=== PATIENT | female | born 1975 | race American Indian/Alaskan Native ===

== ENCOUNTER 2018-02-19 20:33 | Emergency (ER) | payer SELFPAY ==
[2018-02-19] MEDS ORDERED: NACL 0.9% 500 ML 500 ML IV ONE (21:09)
[2018-02-19] MEDS ORDERED: TORADOL IV ONE (21:33)
[2018-02-19] MEDS ORDERED: NORMODYNE IV ONE (21:43)
[2018-02-19 21:45] LABS: Basophils # (Auto) 0.1 K/mm3 (0.0-0.1); Basophils % (Auto) 0.5 % (0.0-1.8); Eosinophils # (Auto) 0.1 K/mm3 (0.0-0.4); Eosinophils % (Auto) 1.3 % (0.0-4.3); Hematocrit 39.3 % (30.3-42.9); Hemoglobin 12.8 gm/dl (10.1-14.3); Lymphocytes # (Auto) 1.9 K/mm3 (1.2-5.4); Mean Corpuscular HGB Conc 33 % (30-34); Mean Corpuscular Hemoglobin 28 pg (28-32); Mean Corpuscular Volume 85 fl (79-97); Monocytes # (Auto) 1.3 K/mm3 (0.0-0.8); Monocytes % (Auto) 11.8 % (0.0-7.3); Platelet Count 339 K/mm3 (140-440); Red Blood Count 4.62 M/mm3 (3.65-5.03); Red Cell Distribution Width 15.3 % (13.2-15.2)
[2018-02-19 21:51] LABS: Bacteria,Urine 1+ /HPF (Negative); Bilirubin,Urine NEG (Negative); Blood,Urine LG (Negative); Color,Urine Yellow (Yellow); Mucus,Urine FEW /HPF
[2018-02-19 21:55] LABS: INR 0.87 (0.87-1.13)
[2018-02-19 22:02] LABS: Albumin 3.9 g/dL (3.9-5); BUN/Creatinine Ratio 12; Blood Urea Nitrogen 7 mg/dL (7-17); Calcium 8.5 mg/dL (8.4-10.2); Hemolysis Index 135
[2018-02-19 22:55] LABS: Alanine Aminotransferase 12 units/L (7-56)
--- NOTE | 2018-02-19 23:21 | XRay Report ---
FINAL REPORT EXAM: XR CXR CLINICAL INDICATIONS: POSSIBLE SEPSIS FINDINGS: Single frontal view of the chest was acquired and compared to the prior examination of January 03, 2017. There is stable cardiomegaly. There is no evidence of congestive heart failure. There is no consolidative infiltrate. IMPRESSION: CARDIOMEGALY NO CONSOLIDATIVE INFILTRATE
[2018-02-19] MEDS ORDERED: BICILLIN L-A IM ONE (23:27)
--- NOTE | 2018-02-19 23:37 | Emergency Department Report ---
ED ENT HPI - General Chief complaint: High BP Stated complaint: ALLOVER BODY PAIN Time Seen by Provider: 02/19/18 21:32 Source: patient Mode of arrival: Ambulatory Limitations: No Limitations - History of Present Illness Initial comments: Patient is a 42-year-old female who is presenting with 2 days of sore throat. Patient also states she feels some mild congestion and some body aches as well. Patient denies any chest pain nausea vomiting diarrhea at this time. Patient noted at triage to have elevated blood pressure states she does not take blood pressure medicine at this time. MD complaint: sore throat Severity: moderate Severity scale (0 -10): 4 Consistency: constant Improves with: none Worsens with: swallowing - Related Data Previous Rx's Medication Instructions Recorded Last Taken Type Albuterol Sulfate [Ventolin HFA] 2 puff IH Q4H PRN #1 hfa.aer.ad 01/05/17 Unknown Rx Levofloxacin [Levaquin] 750 mg PO QDAY #7 tablet 01/05/17 Unknown Rx HYDROcodone/ACETAMINOPHEN 15 ml PO Q6H PRN #180 solution 02/19/18 Unknown Rx [Hydrocodon-Acetamin 7.5-325/15] Metoprolol [Lopressor TAB] 25 mg PO BID #60 tablet 02/19/18 Unknown Rx Prednisone [predniSONE 10 mg 10 mg PO .TAPER #1 tab.ds.pk 02/19/18 Unknown Rx (6-Day Pack, 21 Tabs)] Allergies Allergy/AdvReac Type Severity Reaction Status Date / Time No Known Allergies Allergy Verified 01/03/17 13:05 ED Dental HPI - General Chief complaint: High BP Stated complaint: ALLOVER BODY PAIN Time Seen by Provider: 02/19/18 21:32 Source: patient Mode of arrival: Ambulatory Limitations: No Limitations - Related Data Previous Rx's Medication Instructions Recorded Last Taken Type Albuterol Sulfate [Ventolin HFA] 2 puff IH Q4H PRN #1 hfa.aer.ad 01/05/17 Unknown Rx Levofloxacin [Levaquin] 750 mg PO QDAY #7 tablet 01/05/17 Unknown Rx HYDROcodone/ACETAMINOPHEN 15 ml PO Q6H PRN #180 solution 02/19/18 Unknown Rx [Hydrocodon-Acetamin 7.5-325/15] Metoprolol [Lopressor TAB] 25 mg PO BID #60 tablet 02/19/18 Unknown Rx Prednisone [predniSONE 10 mg 10 mg PO .TAPER #1 tab.ds.pk 02/19/18 Unknown Rx (6-Day Pack, 21 Tabs)] Allergies Allergy/AdvReac Type Severity Reaction Status Date / Time No Known Allergies Allergy Verified 01/03/17 13:05 ED Review of Systems ROS: Stated complaint: ALLOVER BODY PAIN Other details as noted in HPI Comment: All other systems reviewed and negative ED Past Medical Hx - Past Medical History Previous Medical History?: Yes Hx Hypertension: Yes Hx Asthma: Yes - Surgical History Past Surgical History?: Yes Additional Surgical History: Carpal Tunnel - Social History Smoking Status: Never Smoker Substance Use Type: None - Medications Home Medications: Home Medications Medication Instructions Recorded Confirmed Last Taken Type Albuterol Sulfate [Ventolin HFA] 2 puff IH Q4H PRN #1 hfa.aer.ad 01/05/17 Unknown Rx Levofloxacin [Levaquin] 750 mg PO QDAY #7 tablet 01/05/17 Unknown Rx HYDROcodone/ACETAMINOPHEN 15 ml PO Q6H PRN #180 solution 02/19/18 Unknown Rx [Hydrocodon-Acetamin 7.5-325/15] Metoprolol [Lopressor TAB] 25 mg PO BID #60 tablet 02/19/18 Unknown Rx Prednisone [predniSONE 10 mg 10 mg PO .TAPER #1 tab.ds.pk 02/19/18 Unknown Rx (6-Day Pack, 21 Tabs)] ED Physical Exam - General Limitations: No Limitations General appearance: alert, in no apparent distress - Head Head exam: Present: atraumatic, normocephalic - Eye Eye exam: Present: normal appearance - ENT ENT exam: Present: mucous membranes moist, other (some erythema to the posterior pharynx some right tonsillar exudate the uvula is midline) - Neck Neck exam: Present: normal inspection - Respiratory Respiratory exam: Present: normal lung sounds bilaterally. Absent: respiratory distress, wheezes, rales, rhonchi - Cardiovascular Cardiovascular Exam: Present: regular rate, normal rhythm. Absent: systolic murmur, diastolic murmur, rubs, gallop - GI/Abdominal GI/Abdominal exam: Present: soft, normal bowel sounds - Extremities Exam Extremities exam: Present: normal inspection - Back Exam Back exam: Present: normal inspection - Neurological Exam Neurological exam: Present: alert, oriented X3 - Psychiatric Psychiatric exam: Present: normal affect, normal mood - Skin Skin exam: Present: warm, dry, intact, normal color. Absent: rash ED Course Vital Signs 02/19/18 02/19/18 02/19/18 20:58 22:20 22:31 Temperature 100.1 F H Pulse Rate 115 H Respiratory 20 Rate Blood Pressure 219/129 O2 Sat by Pulse 97 97 99 Oximetry 02/19/18 22:45 Temperature Pulse Rate Respiratory Rate Blood Pressure O2 Sat by Pulse 99 Oximetry ED Medical Decision Making - Lab Data Result diagrams: 02/19/18 21:35 02/19/18 21:35 Lab Results 02/19/18 02/19/18 02/19/18 Range/Units 21:30 21:35 21:35 WBC 11.1 H (4.5-11.0) K/mm3 RBC 4.62 (3.65-5.03) M/mm3 Hgb 12.8 (10.1-14.3) gm/dl Hct 39.3 (30.3-42.9) % MCV 85 (79-97) fl MCH 28 (28-32) pg MCHC 33 (30-34) % RDW 15.3 H (13.2-15.2) % Plt Count 339 (140-440) K/mm3 Lymph % (Auto) 17.0 (13.4-35.0) % [place] % (Auto) 11.8 H (0.0-7.3) % Eos % (Auto) 1.3 (0.0-4.3) % Baso % (Auto) 0.5 (0.0-1.8) % Lymph # 1.9 (1.2-5.4) K/mm3 [place] # 1.3 H (0.0-0.8) K/mm3 Eos # 0.1 (0.0-0.4) K/mm3 Baso # 0.1 (0.0-0.1) K/mm3 Seg Neutrophils % 69.4 (40.0-70.0) % Seg Neutrophils # 7.7 (1.8-7.7) K/mm3 PT 12.2 (12.2-14.9) Sec. INR 0.87 (0.87-1.13) VBG pH (7.320-7.420) Sodium (137-145) mmol/L Potassium (3.6-5.0) mmol/L Chloride (98-107) mmol/L Carbon Dioxide (22-30) mmol/L Anion Gap mmol/L BUN (7-17) mg/dL Creatinine (0.7-1.2) mg/dL Estimated GFR ml/min BUN/Creatinine Ratio % Glucose (65-100) mg/dL Lactic Acid (0.7-2.0) mmol/L Calcium (8.4-10.2) mg/dL Total Bilirubin (0.1-1.2) mg/dL AST (5-40) units/L ALT (7-56) units/L Alkaline Phosphatase (35-129) units/L Total Protein (6.3-8.2) g/dL Albumin (3.9-5) g/dL Albumin/Globulin Ratio % Urine Color Yellow (Yellow) Urine Turbidity Clear (Clear) Urine pH 7.0 (5.0-7.0) Ur Specific [place] 1.013 (1.003-1.030) Urine Protein 30 mg/dl (Negative) mg/dL Urine Glucose (UA) Neg (Negative) mg/dL Urine Ketones Neg (Negative) mg/dL Urine Blood Lg (Negative) Urine Nitrite Neg (Negative) Urine Bilirubin Neg (Negative) Urine Urobilinogen 2.0 (<2.0) mg/dL Ur Leukocyte Esterase Sm (Negative) Urine WBC (Auto) 20.0 H (0.0-6.0) /HPF Urine RBC (Auto) 128.0 (0.0-6.0) /HPF U Epithel Cells (Auto) 4.0 (0-13.0) /HPF Urine Bacteria (Auto) 1+ (Negative) /HPF Urine Mucus Few /HPF Monoscreen (Negative) Group A Strep Rapid (Negative) 02/19/18 02/19/18 02/19/18 Range/Units 21:35 21:35 21:35 WBC (4.5-11.0) K/mm3 RBC (3.65-5.03) M/mm3 Hgb (10.1-14.3) gm/dl Hct (30.3-42.9) % MCV (79-97) fl MCH (28-32) pg MCHC (30-34) % RDW (13.2-15.2) % Plt Count (140-440) K/mm3 Lymph % (Auto) (13.4-35.0) % [place] % (Auto) (0.0-7.3) % Eos % (Auto) (0.0-4.3) % Baso % (Auto) (0.0-1.8) % Lymph # (1.2-5.4) K/mm3 [place] # (0.0-0.8) K/mm3 Eos # (0.0-0.4) K/mm3 Baso # (0.0-0.1) K/mm3 Seg Neutrophils % (40.0-70.0) % Seg Neutrophils # (1.8-7.7) K/mm3 PT (12.2-14.9) Sec. INR (0.87-1.13) VBG pH 7.365 (7.320-7.420) Sodium 140 (137-145) mmol/L Potassium 4.2 (3.6-5.0) mmol/L Chloride 99.4 (98-107) mmol/L Carbon Dioxide 25 (22-30) mmol/L Anion Gap 20 mmol/L BUN 7 (7-17) mg/dL Creatinine 0.6 L (0.7-1.2) mg/dL Estimated GFR > 60 ml/min BUN/Creatinine Ratio 12 % Glucose 86 (65-100) mg/dL Lactic Acid 1.40 (0.7-2.0) mmol/L Calcium 8.5 (8.4-10.2) mg/dL Total Bilirubin 0.40 (0.1-1.2) mg/dL AST 21 (5-40) units/L ALT 12 (7-56) units/L Alkaline Phosphatase 69 (35-129) units/L Total Protein 7.6 (6.3-8.2) g/dL Albumin 3.9 (3.9-5) g/dL Albumin/Globulin Ratio 1.1 % Urine Color (Yellow) Urine Turbidity (Clear) Urine pH (5.0-7.0) Ur Specific [place] (1.003-1.030) Urine Protein (Negative) mg/dL Urine Glucose (UA) (Negative) mg/dL Urine Ketones (Negative) mg/dL Urine Blood (Negative) Urine Nitrite (Negative) Urine Bilirubin (Negative) Urine Urobilinogen (<2.0) mg/dL Ur Leukocyte Esterase (Negative) Urine WBC (Auto) (0.0-6.0) /HPF Urine RBC (Auto) (0.0-6.0) /HPF U Epithel Cells (Auto) (0-13.0) /HPF Urine Bacteria (Auto) (Negative) /HPF Urine Mucus /HPF Monoscreen (Negative) Group A Strep Rapid (Negative) 02/19/18 02/19/18 Range/Units 21:38 Unknown WBC (4.5-11.0) K/mm3 RBC (3.65-5.03) M/mm3 Hgb (10.1-14.3) gm/dl Hct (30.3-42.9) % MCV (79-97) fl MCH (28-32) pg MCHC (30-34) % RDW (13.2-15.2) % Plt Count (140-440) K/mm3 Lymph % (Auto) (13.4-35.0) % [place] % (Auto) (0.0-7.3) % Eos % (Auto) (0.0-4.3) % Baso % (Auto) (0.0-1.8) % Lymph # (1.2-5.4) K/mm3 [place] # (0.0-0.8) K/mm3 Eos # (0.0-0.4) K/mm3 Baso # (0.0-0.1) K/mm3 Seg Neutrophils % (40.0-70.0) % Seg Neutrophils # (1.8-7.7) K/mm3 PT (12.2-14.9) Sec. INR (0.87-1.13) VBG pH (7.320-7.420) Sodium (137-145) mmol/L Potassium (3.6-5.0) mmol/L Chloride (98-107) mmol/L Carbon Dioxide (22-30) mmol/L Anion Gap mmol/L BUN (7-17) mg/dL Creatinine (0.7-1.2) mg/dL Estimated GFR ml/min BUN/Creatinine Ratio % Glucose (65-100) mg/dL Lactic Acid (0.7-2.0) mmol/L Calcium (8.4-10.2) mg/dL Total Bilirubin (0.1-1.2) mg/dL AST (5-40) units/L ALT (7-56) units/L Alkaline Phosphatase (35-129) units/L Total Protein (6.3-8.2) g/dL Albumin (3.9-5) g/dL Albumin/Globulin Ratio % Urine Color (Yellow) Urine Turbidity (Clear) Urine pH (5.0-7.0) Ur Specific [place] (1.003-1.030) Urine Protein (Negative) mg/dL Urine Glucose (UA) (Negative) mg/dL Urine Ketones (Negative) mg/dL Urine Blood (Negative) Urine Nitrite (Negative) Urine Bilirubin (Negative) Urine Urobilinogen (<2.0) mg/dL Ur Leukocyte Esterase (Negative) Urine WBC (Auto) (0.0-6.0) /HPF Urine RBC (Auto) (0.0-6.0) /HPF U Epithel Cells (Auto) (0-13.0) /HPF Urine Bacteria (Auto) (Negative) /HPF Urine Mucus /HPF Monoscreen Negative (Negative) Group A Strep Rapid Positive A (Negative) - EKG Data -: EKG Interpreted by Wi - EKG Data Interpretation: other (EKG shows sinus rhythm a rate of 96 normal axis nominal ulcers evidence of LVH time of interpretation 3344) - Medical Decision Making Patient is a 42-year-old black female presenting with 2 issues 1 shows sore throat and does test positive for strep was given a Bicillin shot will be discharged home with pain meds. Secondly the patient had elevated blood pressure 219/129. The patient was given labetalol which did improve the patient 's blood pressure significantly discharge blood pressure is 160 systolic. Patient will be discharged home with blood pressure medicines as well. Critical care attestation.: If time is entered above; I have spent that time in minutes in the direct care of this critically ill patient, excluding procedure time. ED Disposition Clinical Impression: Strep pharyngitis, Hypertensive urgency Disposition: DC-01 TO HOME OR SELFCARE Is pt being admited?: No Does the pt Need Aspirin: No Condition: Stable Instructions: Hypertension (ED), Strep Throat (ED) Prescriptions: HYDROcodone/ACETAMINOPHEN [Hydrocodon-Acetamin 7.5-325/15] 15 ml PO Q6H PRN # 180 solution PRN Reason: Pain Metoprolol [Lopressor TAB] 25 mg PO BID #60 tablet Prednisone [predniSONE 10 mg (6-Day Pack, 21 Tabs)] 10 mg PO .TAPER #1 tab.ds.pk Referrals: NOEMI REDDY MD [Primary Care Provider] - 3-5 Days
[2018-02-20 02:41] VITALS: BP 185/113
== END 2018-02-20 02:15 | disposition home or self-care (01) ==
LOC: ED 20:33
DX: J02.0 Streptococcal pharyngitis (principal); I16.0 Hypertensive urgency; I10 Essential (primary) hypertension
CPT/HCPCS: 36415; 71045; 80053; 81001; 82140; 82805; 85025; 85610; 86308; 87040; 87086; 87430; 93005; 93010; 96372; 96374; 96375; 99284; J0561; J1885; J7040

== ENCOUNTER 2019-07-11 11:07 | Observation (INO) | payer OTHER ==
[2019-07-11] MEDS ORDERED: ASPIRIN PO ONE (11:24)
--- NOTE | 2019-07-11 11:26 | Event Note ---
ED Screening Note Date of service: 07/11/19 Time: 11:22 ED Screening Note: 43 y o female presents with generalized chest pain with headache does not take BP meds This initial assessment/diagnostic orders/clinical plan/treatment(s) is/are subject to change based on patients health status, clinical progression and re- assessment by fellow clinical providers in the ED. Further treatment and workup at subsequent clinical providers discretion. Patient/guardian urged not to elope from the ED as their condition may be serious if not clinically assessed and managed. Initial orders include: CP protocol cxr ekg Aspirin in triage
[2019-07-11] MEDS ORDERED: ASPIRIN ONE (11:28)
[2019-07-11 11:46] LABS: Basophils # (Auto) 0.1 K/mm3 (0.0-0.1); Basophils % (Auto) 1.2 % (0.0-1.8); Eosinophils # (Auto) 0.2 K/mm3 (0.0-0.4); Eosinophils % (Auto) 2.9 % (0.0-4.3); Hematocrit 40.3 % (30.3-42.9); Hemoglobin 13.5 gm/dl (10.1-14.3); Lymphocytes # (Auto) 2.4 K/mm3 (1.2-5.4); Lymphocytes % (Auto) 46.3 % (13.4-35.0); Mean Corpuscular HGB Conc 33 % (30-34); Mean Corpuscular Volume 86 fl (79-97); Monocytes # (Auto) 0.5 K/mm3 (0.0-0.8); Monocytes % (Auto) 10.6 % (0.0-7.3); Platelet Count 364 K/mm3 (140-440); Red Cell Distribution Width 15.7 % (13.2-15.2)
[2019-07-11 11:55] LABS: INR 0.95 (0.87-1.13)
[2019-07-11 12:26] LABS: Alanine Aminotransferase 9 units/L (7-56); BUN/Creatinine Ratio 11; Blood Urea Nitrogen 8 mg/dL (7-17); Calcium 8.9 mg/dL (8.4-10.2); Hemolysis Index 6
--- NOTE | 2019-07-11 12:30 | XRay Report ---
CHEST 2 VIEWS INDICATION / CLINICAL INFORMATION: Chest pain for one day. COMPARISON: 01/05/2017. FINDINGS: SUPPORT DEVICES: None. HEART / MEDIASTINUM: There is moderate generalized enlargement of the cardiopericardial silhouette, m inimally increased. Pulmonary vasculature is normal. The aorta is normal in caliber. LUNGS / PLEURA: No significant pulmonary or pleural abnormality. No pneumothorax. ADDITIONAL FINDINGS: No significant additional findings. IMPRESSION: Moderate generalized enlargement of the cardiopericardial silhouette may be slightly incr eased since 2016. No acute pulmonary disease is identified. Signer Name: Alvaro Mackay MD Signed: 07/11/2019 12:26 PM Workstation Name: [id number]
[2019-07-11] MEDS ORDERED: ZOFRAN IV ONE (14:04)
[2019-07-11] MEDS ORDERED: MORPHINE IV ONE ×2 (14:04→15:19)
[2019-07-11] MEDS ORDERED: APRESOLINE IV ONE (14:04)
[2019-07-11 14:48] LABS: HCG Qualitative,Urine Negative (Negative)
[2019-07-11] MEDS ORDERED: NORMODYNE IV ONE ×2 (15:19→16:26)
--- NOTE | 2019-07-11 17:04 | Emergency Department Report ---
ED Chest Pain HPI - General Chief Complaint: Chest Pain Stated Complaint: BAD HEADACHE/CHEST PAIN Time Seen by Provider: 07/11/19 11:21 Source: patient Mode of arrival: Ambulatory Limitations: No Limitations - History of Present Illness Initial Comments: 43-year-old [place] female presents to the emergency department with complaint of a 4 day history of intermittent chest pain and headache. Both the chest pain and headache are generalized. She denies any vision change, slurred speech or any neurological deficits. She denies any radiation of the chest pain, shortness of breath, fever, nausea, vomiting or diaphoresis. The patient also presents with extremely elevated blood pressure. She has been told that she had hypertension in the past but has not been on any medications and does not follow with a primary care physician. She has tried some Motrin and Tylenol for her symptoms without any relief. Severity scale (0 -10): 5 - Related Data Previous Rx's Medication Instructions Recorded Last Taken Type Acetaminophen [Acetaminophen TAB] 2 tab PO Q4H PRN #15 tablet 07/12/19 Unknown Rx Carvedilol [Coreg] 12.5 mg PO BID #60 tablet 07/12/19 Unknown Rx Famotidine [Pepcid] 20 mg PO BID #30 tablet 07/12/19 Unknown Rx Losartan [Cozaar] 100 mg PO QDAY #30 tablet 07/12/19 Unknown Rx amLODIPine [Norvasc] 10 mg PO QDAY #30 tablet 07/12/19 Unknown Rx Allergies Allergy/AdvReac Type Severity Reaction Status Date / Time No Known Allergies Allergy Verified 01/03/17 13:05 Heart Score - HEART Score History: Slightly suspicious EKG: Non-specific Age: < 45 Risk factors: 1-2 risk factors Troponin: < normal limit HEART Score: 2 - Critical Actions Critical Actions: 0-3 pts:0.9-1.7%risk of adverse cardiac event.Candidate for discharge ED Review of Systems ROS: Stated complaint: BAD HEADACHE/CHEST PAIN Other details as noted in HPI Comment: All other systems reviewed and negative Constitutional: denies: chills, fever Eyes: denies: eye pain, vision change ENT: denies: ear pain, throat pain Respiratory: denies: cough, shortness of breath Cardiovascular: chest pain. denies: palpitations Gastrointestinal: denies: abdominal pain, vomiting Genitourinary: denies: dysuria, frequency Musculoskeletal: denies: back pain, arthralgia Skin: denies: rash, lesions Neurological: headache. denies: weakness, numbness ED Past Medical Hx - Past Medical History Previous Medical History?: Yes Hx Hypertension: Yes Hx Asthma: Yes - Surgical History Past Surgical History?: Yes Additional Surgical History: Carpal Tunnel - Social History Smoking Status: Never Smoker - Medications Home Medications: Home Medications Medication Instructions Recorded Confirmed Last Taken Type Acetaminophen [Acetaminophen TAB] 2 tab PO Q4H PRN #15 tablet 07/12/19 Unknown Rx Carvedilol [Coreg] 12.5 mg PO BID #60 tablet 07/12/19 Unknown Rx Famotidine [Pepcid] 20 mg PO BID #30 tablet 07/12/19 Unknown Rx Losartan [Cozaar] 100 mg PO QDAY #30 tablet 07/12/19 Unknown Rx amLODIPine [Norvasc] 10 mg PO QDAY #30 tablet 07/12/19 Unknown Rx ED Physical Exam - General Limitations: No Limitations - Other Other exam information: GENERAL: The patient is well-developed well-nourished. HENT: Normocephalic. Atraumatic. Patient has moist mucous membranes. EYES: Extraocular motions are intact. Pupils equal reactive to light bilaterally. No nystagmus. NECK: Supple. Trachea is midline. CHEST/LUNGS: Clear to auscultation. There is no respiratory distress noted. HEART/CARDIOVASCULAR: Regular. There is no tachycardia. There is no murmur. ABDOMEN: Abdomen is soft, nontender. Patient has normal bowel sounds. There is no abdominal distention. SKIN: Skin is warm and dry. NEURO: The patient is awake, alert, and oriented. The patient is cooperative. The patient has no focal neurologic deficits. Normal speech. Cranial nerves II through XII grossly intact. MUSCULOSKELETAL: There is no tenderness or deformity. There is no limitation range of motion. There is no evidence of acute injury. ED Course Vital Signs 07/11/19 07/11/19 07/11/19 11:22 13:09 14:36 Temperature 98.3 F Pulse Rate 94 H 73 71 Respiratory 18 16 Rate Blood Pressure 242/163 216/121 Blood Pressure 213/151 [Right] O2 Sat by Pulse 97 100 Oximetry 07/11/19 07/11/19 07/11/19 14:37 15:36 16:26 Temperature Pulse Rate 71 73 75 Respiratory 12 Rate Blood Pressure 194/114 180/103 Blood Pressure 216/121 [Right] O2 Sat by Pulse 100 Oximetry 07/11/19 07/11/19 07/11/19 16:27 17:22 18:03 Temperature Pulse Rate 85 18 L 60 Respiratory 18 18 16 Rate Blood Pressure Blood Pressure 118/112 202/118 175/99 [Right] O2 Sat by Pulse 99 99 100 Oximetry 07/11/19 07/11/19 22:00 22:05 Temperature Pulse Rate 78 78 Respiratory 19 Rate Blood Pressure 189/98 Blood Pressure 189/112 [Right] O2 Sat by Pulse 95 Oximetry CLEO score - Cleo Score Age > 65: (0) No Aspirin use within the Past 7 Days: (0) No 3 or more CAD Risk Factors: (0) No 2 or more Angina events in past 24 hrs: (1) Yes Known CAD with more than 50% Stenosis: (0) No Elevated Cardiac Markers: (0) No ST Deviation Greater than 0.5mm: (0) No CLEO Score: 1 ED Medical Decision Making - Lab Data Result diagrams: 07/12/19 06:13 07/12/19 06:13 - EKG Data -: EKG Interpreted by Me EKG shows normal: sinus rhythm, axis (left axis deviation), intervals, QRS complexes (Q waves to the septal leads, LVH) Rate: normal - EKG Data When compared to previous EKG there are: previous EKG unavailable Interpretation: other (sinus rhythm, left axis deviation, LVH, Q waves to the septal leads) - Radiology Data Radiology results: report reviewed, image reviewed interpreted by me: chest x-ray shows some cardiomegaly. No pleural effusions, pneumothorax, pneumonia or focal consolidation. Nonenhanced CT scan of the brain: INDICATION: Headaches TECHNIQUE: Routine CT head without contrast. Sagittal and coronal reformatted images were obtained. All CT scans at this location are performed using CT dose reduction for ALARA by means of automated exposure control. COMPARISON: None. FINDINGS: BRAIN / INTRACRANIAL CONTENTS: No acute hemorrhage, mass effect, midline shift, hydrocephalus, or acute, large territorial infarct. No chronic infarct or focal atrophy. Normal brain volume and ventricular/sulcal size for age. No significant white matter abnormality. CRANIOCERVICAL JUNCTION: No significant abnormality. ORBITS: No significant abnormality of visualized orbits. SINUSES / MASTOIDS: Mucosal thickening is seen in both maxillary sinuses more on the left side. Opacified ethmoid air cells are seen bilaterally. Minimal mucosal thickening is seen in the right sphenoid sinus. Mastoid air cells and middle ear cavity are normal. ADDITIONAL FINDINGS: None. IMPRESSION: I do not see an acute parenchymal lesion in the brain. - Medical Decision Making This patient presents with both a four-day history of intermittent generalized chest pain and a generalized headache. On examination she has no focal, motor or sensory deficits cranial nerves are intact. A CT scan of the head did not show any bleed, shift, mass, ischemia, or any other acute process. Chest x-ray did not show any acute process as well. Patient's labs have been mostly unremarkable including negative troponin. Patient was given multiple rounds of pain medication and antihypertensive meds. Her chest pain had pretty much resolved upon presentation. Her headache improved but did not resolve. She does not have any focal or lateralizing deficits. However the patient presented with extremely elevated blood pressure with a systolic of 240. She appears to have some history of this and medication noncompliance or follow-up with a primary care physician. Despite pain control and at least 3 IV antihypertensive medications given, the patient still has a blood pressure greater than 200. She'll be admitted the hospital for all of these symptoms and due to her uncontrolled blood pressure. She was accepted for admission by the hospitalist, Dr. Gayle. - Differential Diagnosis TN, tension headache, migraine, subarachnoid Critical Care Time: No Critical care attestation.: If time is entered above; I have spent that time in minutes in the direct care of this critically ill patient, excluding procedure time. ED Disposition Clinical Impression: Hypertensive urgency Chest pain Qualifiers: Chest pain type: unspecified Qualified Code(s): R07.9 - Chest pain, unspecified Headache Qualifiers: Headache type: unspecified Headache chronicity pattern: unspecified pattern Intractability: intractable Qualified Code(s): R51 - Headache Disposition: -09 OP ADMIT IP TO THIS HOSP Is pt being admited?: Yes Condition: Fair
[2019-07-11] MEDS ORDERED: DILAUDID IV ONE (17:06)
--- NOTE | 2019-07-11 18:04 | Cat Scan Report ---
Nonenhanced CT scan of the brain: INDICATION: Headaches TECHNIQUE: Routine CT head without contrast. Sagittal and coronal reformatted images were obtained. A ll CT scans at this location are performed using CT dose reduction for ALARA by means of automated ex posure control. COMPARISON: None. FINDINGS: BRAIN / INTRACRANIAL CONTENTS: No acute hemorrhage, mass effect, midline shift, hydrocephalus, or acu te, large territorial infarct. No chronic infarct or focal atrophy. Normal brain volume and ventricul ar/sulcal size for age. No significant white matter abnormality. CRANIOCERVICAL JUNCTION: No significant abnormality. ORBITS: No significant abnormality of visualized orbits. SINUSES / MASTOIDS: Mucosal thickening is seen in both maxillary sinuses more on the left side. Opaci fied ethmoid air cells are seen bilaterally. Minimal mucosal thickening is seen in the right sphenoid sinus. Mastoid air cells and middle ear cavity are normal. ADDITIONAL FINDINGS: None. IMPRESSION: I do not see an acute parenchymal lesion in the brain. Signer Name: Martha Curran MD Signed: 07/11/2019 5:59 PM Workstation Name: [id number]
[2019-07-11] MEDS ORDERED: SODIUM CHLORIDE FLUSH SYRINGE 10 ML IV PRN (21:48)
[2019-07-11] MEDS ORDERED: ZOFRAN IV PRN (21:48)
[2019-07-11] MEDS ORDERED: IBUPROFEN PO PRN (21:48)
[2019-07-11] MEDS ORDERED: DILAUDID IV PRN (21:48)
[2019-07-11] MEDS ORDERED: REGLAN IV PRN (21:48)
[2019-07-11] MEDS ORDERED: APRESOLINE IV PRN (21:55)
[2019-07-11] MEDS: TYLENOL PO PRN (23:32)
[2019-07-11] MEDS: COREG PO SCH (23:33)
[2019-07-11] MEDS: PEPCID PO SCH (23:34)
[2019-07-11] MEDS: COZAAR PO SCH (23:34)
[2019-07-11] MEDS: NORVASC PO SCH (23:35)
[2019-07-11] MEDS: SODIUM CHLORIDE FLUSH SYRINGE 10 ML IV SCH (23:35)
[2019-07-12 06:32] LABS: Basophils # (Auto) 0.1 K/mm3 (0.0-0.1); Basophils % (Auto) 0.9 % (0.0-1.8); Eosinophils # (Auto) 0.1 K/mm3 (0.0-0.4); Eosinophils % (Auto) 1.4 % (0.0-4.3); Hematocrit 37.4 % (30.3-42.9); Hemoglobin 12.6 gm/dl (10.1-14.3); Lymphocytes % (Auto) 33.6 % (13.4-35.0); Mean Corpuscular HGB Conc 34 % (30-34); Mean Corpuscular Volume 85 fl (79-97); Monocytes # (Auto) 0.7 K/mm3 (0.0-0.8); Monocytes % (Auto) 10.7 % (0.0-7.3); Platelet Count 368 K/mm3 (140-440); Red Blood Count 4.41 M/mm3 (3.65-5.03); Red Cell Distribution Width 15.4 % (13.2-15.2)
[2019-07-12 06:57] LABS: Alanine Aminotransferase 9 units/L (7-56); Albumin 3.5 g/dL (3.9-5); BUN/Creatinine Ratio 18; Blood Urea Nitrogen 14 mg/dL (7-17); Calcium 8.7 mg/dL (8.4-10.2); Hemolysis Index 0
--- NOTE | 2019-07-12 07:17 | Event Note ---
Date: 07/11/19 See H/p in reports [facility] emergency Chest pain r/o MT protocol
--- NOTE | 2019-07-12 07:38 | History and Physical Report ---
CHIEF COMPLAINT: Left-sided chest pain for 4 days. HISTORY OF PRESENT ILLNESS: A 43-year-old female with history of hypertension, comes in for left-sided chest pain and headache for 4 days. Chest pain is intermittent and retrosternal, not radiating. No diaphoresis. No shortness of breath, no palpitations. The patient has a headache, which is constant and bifrontal. No nausea or vomiting. The patient also complains of high blood pressure. Not taking any medications except metoprolol. No exacerbating or relieving factors. No syncope or seizures. PAST MEDICAL HISTORY: Significant for hypertension and asthma. PAST SURGICAL HISTORY: Carpal tunnel syndrome surgery. SOCIAL HISTORY: Does not smoke. FAMILY HISTORY: Hypertension. CURRENT MEDICATIONS: Metoprolol 25 mg twice a day last year and albuterol inhaler. REVIEW OF SYSTEMS: Significant for left-sided chest pain and bifrontal headache. Chest pain is intermittent. A 14-point review of systems done. PHYSICAL EXAMINATION: GENERAL: Young female, cooperative during examination. VITAL SIGNS: Initial blood pressure was 242/163, came down to 213/151 and after multiple doses of hydralazine, came down to 189/98. Sats are 95%. Respiratory rate is 19. HEENT: Unremarkable. Pupils equal and reactive. NECK: Supple, no lymphadenopathy, no thyromegaly. LUNGS: Clear to auscultation and percussion. Good air entry. CARDIOVASCULAR: S1, S2 heard. No gallop, no murmur, no rub. Apical impulse in left fifth intercostal space in midclavicular line. ABDOMEN: Soft and benign. No hepatosplenomegaly. No guarding, no rigidity. Hernial orifices are normal. EXTREMITIES: Good pedal pulses. No pedal edema. CENTRAL NERVOUS SYSTEM: Alert and oriented x 4, nonfocal exam. SKIN: Normal. LABORATORY DATA: Significant for normal CBC and normal electrolytes. EKG shows normal sinus rhythm, LVH criteria present. Heart rate of 95 per minute. Left atrial enlargement present. Probable left ventricular hypertrophy. Chest x-ray also shows moderate generalized enlargement of the cardiopericardial silhouette, which may be slightly increased since 2017. ASSESSMENT AND PLAN: 1. Chest pain, rule out myocardial infarction, chest pain protocol. 2. Hypertensive emergency. The patient initiated on losartan, Coreg, and amlodipine. IV hydralazine 10 mg every 3 hours to be given. Hydralazine p.o. to be added if necessary. 3. Deep venous thrombosis prophylaxis. The patient on Lovenox. 4. Gastrointestinal prophylaxis. JOB# [id number] ROSS/UMM
[2019-07-12] MEDS ORDERED: LEXISCAN IV ONE ×2 (08:12→08:16)
[2019-07-12] MEDS ORDERED: LOVENOX SUB-Q SCH (10:00)
[2019-07-12 10:45] VITALS: BP 155/78
[2019-07-12] MEDS: COREG PO SCH (11:22)
[2019-07-12] MEDS: TYLENOL PO PRN (11:23)
[2019-07-12] MEDS: COZAAR PO SCH (11:24)
[2019-07-12] MEDS: NORVASC PO SCH (11:25)
[2019-07-12] MEDS: PEPCID PO SCH (11:26)
[2019-07-12] MEDS: SODIUM CHLORIDE FLUSH SYRINGE 10 ML IV SCH (11:27)
--- NOTE | 2019-07-12 12:19 | Event Note ---
Date: 07/12/19 Stress test complete preliminary report stress test negative for stress induced ischemia EF 46%
--- NOTE | 2019-07-12 15:29 | Discharge Summary ---
Providers - Providers Date of Admission: 07/11/19 21:48 Date of discharge: 07/12/19 Attending physician: LITA ALMENDAREZ Primary care physician: NEERU SINGH MD Hospitalization Condition: Stable Hospital course: Patient is a 43 yo woman with a history of hypertension who presented with Chest pains and extremely high BP 242/163 requiring multiple antihypertensives to control. She underwent stress test which was negative but EF calcuated at 46%, most likely new onset NICMP. Discharge Diagnoses: Malignant Hypertension with Urgency Chest pains related to bp Non ischemic Cardiomyopathy suspected Morbid Obesity, BMI 42.8 Disposition: DC-01 TO HOME OR SELFCARE Time spent for discharge: 31 minutes Core Measure Documentation - Palliative Care Palliative Care/ Comfort Measures: Not Applicable - Core Measures Any of the following diagnoses?: none - VTE Discharge Requirements Deep Vein Thrombosis/Pulmonary Embolism Present on Admission: No Has pt received <5 days of overlap therapy or INR<2.0: No Anticoagulant overlap therapy prescribed at discharge: No Contraindication No Overlap Therapy order at DC: Not Indicated Exam - Physical Exam Narrative exam: Gen: WDWN, obese, bmi 42.8, NAD, Awake, Alert, Orientated x 3 HEENT: NCAT, EOMI, PERRL, OP Clear Neck: supple, no adenopathy, no thyromegaly, no JVD CVS/Heart: RRR, normal S1S2, pulses present bilaterally Chest/Lungs: CTA B, Symmetrical chest expansion, good air entry bilaterally GI/Abdomen: soft, NTND, good bowel sounds, no guarding or rebound /Bladder: no suprapubic tenderness, no CVA or paraspinal tenderness Extermity/Skin: no c/c/e, no obvious rash MSK: FROM x 4 Neuro: CN 2-12 grossly intact, no new focal deficits Psych: calm - Constitutional Vitals: Temp Pulse Resp BP Pulse Ox 98.3 F 81 16 155/78 96 07/12/19 07:34 07/12/19 11:40 07/12/19 11:40 07/12/19 09:28 07/12/19 11:40 Plan Activity: other (no strenous activity unless cleared by PCP) Diet: low salt Special Instructions: record daily BP diary Additional Instructions: Keep Blood pressure diary and take to your doctor Follow up with: PRIMARY CAREMD [Primary Care Provider] - 3-5 Days DOLLY PERLA MD [Staff Physician] - 7 Days Prescriptions: Carvedilol [Coreg] 12.5 mg PO BID #60 tablet Losartan [Cozaar] 100 mg PO QDAY #30 tablet amLODIPine [Norvasc] 10 mg PO QDAY #30 tablet
--- NOTE | 2019-07-13 12:36 | Treadmill Report ---
THALLIUM STRESS TEST LEFT VENTRICLE: Left ventricular chamber size is within normal limits. Perfusion study demonstrates homogeneous uptake of the tracer in all segments, no significant perfusion defects identified. Gated analysis suggests mild left ventricular systolic dysfunction with ejection fraction calculated at 46%. CONCLUSION: No demonstrable ischemia on thallium perfusion imaging. Recommend clinical correlation, and echocardiographic reassessment of left ventricular chamber size and systolic function. [facility]# [id number] CA/NTS
== END 2019-07-12 17:30 | disposition home or self-care (01) ==
LOC: ED 11:07 → 4A 21:48
PROVIDERS: ADMIT Internal Medicine; ATTEND Internal Medicine
DX: R07.89 Other chest pain (principal); I16.0 Hypertensive urgency; I10 Essential (primary) hypertension; E66.01 Morbid (severe) obesity due to excess calories; Z68.41 Body mass index [BMI] 40.0-44.9, adult
CPT/HCPCS: 36415; 70450; 71046; 78452; 80053; 81025; 83036; 84484; 84703; 85025; 85610; 93005; 93010; 93017; 96372; 96374; 96375; 96376; 99284; A9502; G0378; J0360; J1170; J1650; J2270; J2405; J2785

== ENCOUNTER 2021-05-16 13:20 | Observation (INO) | payer OTHER ==
[2021-05-16] MEDS ORDERED: ASPIRIN 81 MG TAB CHEW PO ONE (13:45)
[2021-05-16 14:54] LABS: Hematocrit 35.4 % (30.3-42.9); Hemoglobin 11.5 gm/dl (10.1-14.3); Mean Corpuscular HGB Conc 33 % (30-34); Mean Corpuscular Volume 80 fl (79-97); Platelet Count 371 K/mm3 (140-440); Red Cell Distribution Width 17.5 % (13.2-15.2)
[2021-05-16 14:58] LABS: Alanine Aminotransferase 10 units/L (7-56); Albumin 4.1 g/dL (3.9-5); Blood Urea Nitrogen 9 mg/dL (7-17); Calcium 9.3 mg/dL (8.4-10.2); Hemolysis Index 31
[2021-05-16 15:02] LABS: BUN/Creatinine Ratio 15
[2021-05-16] MEDS ORDERED: IPRATROPIUM/ALBUTEROL SULFATE 3 ML AMPUL.NEB IH ONE (15:13)
[2021-05-16] MEDS ORDERED: hydrALAZINE 20 MG/1 ML INJ IV ONE ×2 (15:34→17:12)
--- NOTE | 2021-05-16 15:40 | Emergency Department Report ---
ED Chest Pain HPI - General Chief Complaint: Chest Pain Stated Complaint: CHEST PAIN HIGH BP Time Seen by Provider: 05/16/21 15:00 Source: patient Mode of arrival: Ambulatory Limitations: No Limitations - History of Present Illness Initial Comments: 45-year-old female with history of hypertension, obesity, and childhood asthma presents complaining of 3 days of discomfort and heaviness in the center of her chest. Patient states that the symptoms have been constant. She reports a discomfort and pressure-like sensation in the center of her chest which is worse with exertion over the past 3 days. She does feel short of breath and has been having intermittent episodes of palpitations lasting few minutes at a time. She has noticed increased swelling in her feet. She went to her doctor today and was noted to have profoundly elevated blood pressure in the 200s systolic. She states she has been taking all of her medications as prescribed. She denies having any fever/chills, headache, vision change, focal weakness, sensory changes, confusion, cough, abdominal pain, nausea/vomiting, dysuria, or any other complaints. - Related Data Previous Rx's Medication Instructions Recorded Last Taken Type Acetaminophen [Acetaminophen TAB] 2 tab PO Q4H PRN #15 tablet 07/12/19 04/18/20 Rx Losartan [Cozaar] 100 mg PO QDAY #30 tablet 07/12/19 04/18/20 Rx Valsartan [Diovan] 160 mg PO Q12HR #60 tablet 04/19/20 Unknown Rx amLODIPine 10 mg PO QDAY #30 tablet 04/19/20 Unknown Rx carvediloL [Coreg] 12.5 mg PO BID #60 tablet 04/19/20 Unknown Rx hydrALAZINE [Apresoline TAB] 100 mg PO Q8H #90 tab 04/19/20 Unknown Rx oxyCODONE /ACETAMINOPHEN [Percocet 1 tab PO Q6H PRN #10 tablet 04/19/20 Unknown Rx 5/325 mg] Naproxen 500 mg PO BID #20 tablet 07/18/20 Unknown Rx traMADoL [Ultram 50 MG tab] 50 mg PO Q6HR PRN #12 tablet 07/18/20 Unknown Rx Allergies Allergy/AdvReac Type Severity Reaction Status Date / Time No Known Allergies Allergy Verified 05/16/21 13:40 Heart Score - HEART Score History: Moderately suspicious EKG: Normal Age: 45-65 Risk factors: 1-2 risk factors Troponin: < normal limit HEART Score: 3 - EKG Read Time Time EKG Completed: 13:51 EKG Read Time: 13:57 ED Review of Systems ROS: Stated complaint: CHEST PAIN HIGH BP Other details as noted in HPI Constitutional: denies: chills, fever Eyes: denies: eye pain, vision change ENT: denies: throat pain, congestion Respiratory: shortness of breath. denies: cough Cardiovascular: chest pain, palpitations, edema. denies: syncope Gastrointestinal: denies: abdominal pain, nausea, vomiting Genitourinary: denies: dysuria, frequency Musculoskeletal: denies: back pain, myalgia Skin: denies: rash Neurological: denies: headache, weakness ED Past Medical Hx - Past Medical History Hx Hypertension: Yes Hx Congestive Heart Failure: No Hx Diabetes: No Hx Asthma: Yes Hx COPD: No - Surgical History Additional Surgical History: Carpal Tunnel - Social History Smoking Status: Never Smoker Substance Use Type: None - Medications Home Medications: Home Medications Medication Instructions Recorded Confirmed Last Taken Type Acetaminophen [Acetaminophen TAB] 2 tab PO Q4H PRN #15 tablet 07/12/19 04/18/20 04/18/20 Rx Losartan [Cozaar] 100 mg PO QDAY #30 tablet 07/12/19 04/18/20 04/18/20 Rx Valsartan [Diovan] 160 mg PO Q12HR #60 tablet 04/19/20 Unknown Rx amLODIPine 10 mg PO QDAY #30 tablet 04/19/20 Unknown Rx carvediloL [Coreg] 12.5 mg PO BID #60 tablet 04/19/20 Unknown Rx hydrALAZINE [Apresoline TAB] 100 mg PO Q8H #90 tab 04/19/20 Unknown Rx oxyCODONE /ACETAMINOPHEN [Percocet 1 tab PO Q6H PRN #10 tablet 04/19/20 Unknown Rx 5/325 mg] Naproxen 500 mg PO BID #20 tablet 07/18/20 Unknown Rx traMADoL [Ultram 50 MG tab] 50 mg PO Q6HR PRN #12 tablet 07/18/20 Unknown Rx ED Physical Exam - General Limitations: No Limitations - Other Other exam information: GENERAL: Well developed and well nourished. No acute distress HEENT: Normocephalic. No obvious signs of trauma. Moist mucous membranes. EYES: Extraocular movements are intact. Pupils are equal round and reactive to light bilaterally NECK: Supple. Trachea is midline. LUNGS: Nonlabored breathing. Equal chest rise bilaterally. Globally decreased breath sounds throughout with scattered rales versus rhonchi. HEART/CARDIOVASCULAR: Tachycardic but with regular rhythm. No murmurs or rubs. VASCULAR: 2+ peripheral pulses. Cap refill < 2 seconds. 2+ pitting edema bilaterally. ABDOMEN: Abdomen is soft and nondistended. There is no significant tenderness, guarding or rebound. SKIN: Skin is warm and dry NEURO: Patient is awake, alert, and oriented. gallery host II-XII grossly intact. No focal deficits. Normal motor and sensory exam throughout. Normal speech. MUSCULOSKELETAL: No obvious deformities. No significant tenderness. Normal ROM throughout. BACK/SPINE: No costovertebral angle tenderness. ED Course Vital Signs 05/16/21 05/16/21 05/16/21 13:46 15:28 15:56 Temperature 98.2 F Pulse Rate 101 H 84 Pulse Rate [ 92 H Posterior Bilateral Throughout] Respiratory 24 16 Rate Respiratory 16 Rate [Posterior Bilateral Throughout] Blood Pressure 236/145 Blood Pressure 200/120 [Left] O2 Sat by Pulse 99 100 Oximetry 05/16/21 05/16/21 05/16/21 16:04 16:49 18:20 Temperature Pulse Rate 79 84 100 H Pulse Rate [ Posterior Bilateral Throughout] Respiratory 16 Rate Respiratory Rate [Posterior Bilateral Throughout] Blood Pressure 161/139 179/103 Blood Pressure 183/92 [Left] O2 Sat by Pulse 95 Oximetry PONCHO score - Poncho Score Age > 65: (0) No Aspirin use within the Past 7 Days: (0) No 3 or more CAD Risk Factors: (0) No 2 or more Angina events in past 24 hrs: (1) Yes Known CAD with more than 50% Stenosis: (0) No Elevated Cardiac Markers: (0) No ST Deviation Greater than 0.5mm: (0) No PONCHO Score: 1 ED Medical Decision Making - Lab Data Result diagrams: 05/16/21 14:13 05/16/21 14:13 Lab Results 05/16/21 05/16/21 05/16/21 Range/Units 14:13 14:13 15:17 WBC 6.6 (4.5-11.0) K/mm3 RBC 4.40 (3.65-5.03) M/mm3 Hgb 11.5 (10.1-14.3) gm/dl Hct 35.4 (30.3-42.9) % MCV 80 (79-97) fl MCH 26 L (28-32) pg MCHC 33 (30-34) % RDW 17.5 H (13.2-15.2) % Plt Count 371 (140-440) K/mm3 Add Manual Diff Complete Total Counted 100 Seg Neuts % (Manual) 43.0 (40.0-70.0) % Lymphocytes % (Manual) 44.0 H (13.4-35.0) % Monocytes % (Manual) 7.0 (0.0-7.3) % Eosinophils % (Manual) 4.0 (0.0-4.3) % Basophils % (Manual) 2.0 H (0.0-1.8) % Nucleated RBC % Not Reportable Seg Neutrophils # Man 2.8 (1.8-7.7) K/mm3 Band Neutrophils # 0.0 K/mm3 Lymphocytes # (Manual) 2.9 (1.2-5.4) K/mm3 Abs React Lymphs (Man) 0.0 K/mm3 Monocytes # (Manual) 0.5 (0.0-0.8) K/mm3 Eosinophils # (Manual) 0.3 (0.0-0.4) K/mm3 Basophils # (Manual) 0.1 (0.0-0.1) K/mm3 Metamyelocytes # 0.0 K/mm3 Myelocytes # 0.0 K/mm3 Promyelocytes # 0.0 K/mm3 Blast Cells # 0.0 K/mm3 WBC Morphology Not Reportable Hypersegmented Neuts Not Reportable Hyposegmented Neuts Not Reportable Hypogranular Neuts Not Reportable Smudge Cells Not Reportable Toxic Granulation Not Reportable Toxic Vacuolation Not Reportable Dohle Bodies Not Reportable Pelger-Huet Anomaly Not Reportable Tory Rods Not Reportable Platelet Estimate Not Reportable Clumped Platelets Not Reportable Plt Clumps, EDTA Not Reportable Large Platelets Not Reportable Giant Platelets Not Reportable Platelet Satelliting Not Reportable Plt Morphology Comment Not Reportable RBC Morphology Normal Dimorphic RBCs Not Reportable Polychromasia Not Reportable Hypochromasia Not Reportable Poikilocytosis Not Reportable Anisocytosis Not Reportable Microcytosis Not Reportable Macrocytosis Not Reportable Spherocytes Not Reportable Pappenheimer Bodies Not Reportable Sickle Cells Not Reportable Target Cells Not Reportable Tear Drop Cells Not Reportable Ovalocytes Not Reportable Helmet Cells Not Reportable Solomon-Embarrass Bodies Not Reportable [place] Rings Not Reportable Calista Cells Not Reportable Bite Cells Not Reportable Crenated Cell Not Reportable Elliptocytes Not Reportable Acanthocytes (Spur) Not Reportable Rouleaux Not Reportable Hemoglobin C Crystals Not Reportable Schistocytes Not Reportable Malaria parasites Not Reportable Wilfred Bodies Not Reportable Hem Pathologist Commnt No Sodium 135 L (137-145) mmol/L Potassium 3.6 (3.6-5.0) mmol/L Chloride 96.4 L (98-107) mmol/L Carbon Dioxide 27 (22-30) mmol/L Anion Gap 15 mmol/L BUN 9 (7-17) mg/dL Creatinine 0.6 (0.6-1.2) mg/dL Estimated GFR > 60 ml/min BUN/Creatinine Ratio 15 % Glucose 92 (65-100) mg/dL Calcium 9.3 (8.4-10.2) mg/dL Magnesium (1.7-2.3) mg/dL Total Bilirubin 0.40 (0.1-1.2) mg/dL AST 16 (5-40) units/L ALT 10 (7-56) units/L Alkaline Phosphatase 66 (35-129) units/L Troponin T < 0.010 (0.00-0.029) ng/mL NT-Pro-B Natriuret Pep (0-450) pg/mL Total Protein 7.5 (6.3-8.2) g/dL Albumin 4.1 (3.9-5) g/dL Albumin/Globulin Ratio 1.2 % HCG, Qual Negative (Negative) 05/16/21 05/16/21 05/16/21 Range/Units 15:17 15:17 16:16 WBC (4.5-11.0) K/mm3 RBC (3.65-5.03) M/mm3 Hgb (10.1-14.3) gm/dl Hct (30.3-42.9) % MCV (79-97) fl MCH (28-32) pg MCHC (30-34) % RDW (13.2-15.2) % Plt Count (140-440) K/mm3 Add Manual Diff Total Counted Seg Neuts % (Manual) (40.0-70.0) % Lymphocytes % (Manual) (13.4-35.0) % Monocytes % (Manual) (0.0-7.3) % Eosinophils % (Manual) (0.0-4.3) % Basophils % (Manual) (0.0-1.8) % Nucleated RBC % Seg Neutrophils # Man (1.8-7.7) K/mm3 Band Neutrophils # K/mm3 Lymphocytes # (Manual) (1.2-5.4) K/mm3 Abs React Lymphs (Man) K/mm3 Monocytes # (Manual) (0.0-0.8) K/mm3 Eosinophils # (Manual) (0.0-0.4) K/mm3 Basophils # (Manual) (0.0-0.1) K/mm3 Metamyelocytes # K/mm3 Myelocytes # K/mm3 Promyelocytes # K/mm3 Blast Cells # K/mm3 WBC Morphology Hypersegmented Neuts Hyposegmented Neuts Hypogranular Neuts Smudge Cells Toxic Granulation Toxic Vacuolation Dohle Bodies Pelger-Huet Anomaly Tory Rods Platelet Estimate Clumped Platelets Plt Clumps, EDTA Large Platelets Giant Platelets Platelet Satelliting Plt Morphology Comment RBC Morphology Dimorphic RBCs Polychromasia Hypochromasia Poikilocytosis Anisocytosis Microcytosis Macrocytosis Spherocytes Pappenheimer Bodies Sickle Cells Target Cells Tear Drop Cells Ovalocytes Helmet Cells Solomon-Embarrass Bodies [place] Rings Calista Cells Bite Cells Crenated Cell Elliptocytes Acanthocytes (Spur) Rouleaux Hemoglobin C Crystals Schistocytes Malaria parasites Wilfred Bodies Hem Pathologist Commnt Sodium (137-145) mmol/L Potassium (3.6-5.0) mmol/L Chloride (98-107) mmol/L Carbon Dioxide (22-30) mmol/L Anion Gap mmol/L BUN (7-17) mg/dL Creatinine (0.6-1.2) mg/dL Estimated GFR ml/min BUN/Creatinine Ratio % Glucose (65-100) mg/dL Calcium (8.4-10.2) mg/dL Magnesium 1.90 (1.7-2.3) mg/dL Total Bilirubin (0.1-1.2) mg/dL AST (5-40) units/L ALT (7-56) units/L Alkaline Phosphatase (35-129) units/L Troponin T < 0.010 (0.00-0.029) ng/mL NT-Pro-B Natriuret Pep 443.2 (0-450) pg/mL Total Protein (6.3-8.2) g/dL Albumin (3.9-5) g/dL Albumin/Globulin Ratio % HCG, Qual (Negative) - EKG Data -: EKG Interpreted by Co - EKG Data 05/16/21 15:40 Normal sinus rhythm. Normal axis. Normal intervals. No ectopy. No significant ST segment or T wave abnormalities. - Radiology Data CTA CHEST WITH CONTRAST INDICATION / CLINICAL INFORMATION: rule out PE. Chest pain. TECHNIQUE: Axial CT images were obtained through the chest after injection of 100 mL Omnipaque 350 IV contrast. 3 plane MIP and/or 3D reconstructions were produced. All CT scans at this location are performed using CT dose reduction for ALARA by means of automated exposure control. COMPARISON: No prior chest CT. Chest radiograph from earlier on same date. FINDINGS: PULMONARY ARTERIES: No pulmonary emboli. THORACIC AORTA: No significant abnormality. HEART: Heart is moderately enlarged involving all chambers. CORONARY ARTERY CALCIFICATION: None. MEDIASTINUM / DARRYL: Calcified subcarinal lymph node but no significant adenopathy. PLEURA: No pleural effusion. No pneumothorax. LUNGS: No acute air space or interstitial disease. Incidental pulmonary nodule in the right upper lobe measuring 6 mm seen on axial series 2 image 27. ADDITIONAL FINDINGS: None. UPPER ABDOMEN: No acute findings. SKELETAL STRUCTURES: No significant osseous abnormality. IMPRESSION: 1. No CT evidence for pulmonary embolism. 2. No acute pulmonary or pleural findings. 3. Single incidental pulmonary nodule(s) in the right upper lobe measuring 6 mm with solid characteristics. Recommendation according to Fleischner Society 2017 Guidelines: Low Risk Patient: CT at 6-12 months, then consider CT at 18-24 months; High Risk Patient: CT at 6-12 months, then CT at 18-24 months Signer Name: Garry Ramirez MD Signed: 05/16/2021 5:12 PM Workst ation Name: [id number] XR chest 1V ap INDICATION / CLINICAL INFORMATION: CP. COMPARISON: 04/18/2020 FINDINGS: SUPPORT DEVICES: None. HEART /PULMONARY VASCULATURE: Cardiac enlargement with pulmonary vasculature congestion. LUNGS / PLEURA: No significant pulmonary or pleural abnormality. No pneumothorax. ADDITIONAL FINDINGS: No significant additional findings. IMPRESSION: Cardiomegaly without overt failure or other acute chest process. Signer Name: Juan Cat MD Signed: 05/16/2021 4:24 PM Workstation Name: [id number] - Medical Decision Making 45-year-old female with hypertension, obesity, childhood asthma brought in for 3 days of chest discomfort/heaviness worse with exertion as well as shortness of breath and palpitations. Patient was seen by her doctor and sent here for profoundly elevated blood pressure. Upon arrival to the emergency department, the patient is noted to have a blood pressure of 236/145 and her heart rate is in the 100s. She is maintaining normal oxygen saturation. Physical examination reveals globally decreased air movement with scattered rales. She has 2+ pitting edema the bilateral lower extremities. The remainder of her physical exam is grossly within normal limits. We will perform broad work-up with a full set of labs, EKG, chest x-ray. We will give aspirin now as well as 10 mg of IV hydralazine for suspected hypertensive urgency/emergency and monitor closely. Given that she has a history of childhood asthma and lung auscultation does reveal globally decreased air movement we will administer DuoNeb and see if this helps her symptoms. Labs have partially resulted and reveal no significant leukocytosis or anemia. There are no significant electrolyte abnormalities. Kidney function is normal. Troponin is negative. BNP is 443. On repeat assessment at 5:10 PM, the patient reports that she received a breathing treatment and did not feel that helped her symptoms at all. They are no worse and they are no better. Blood pressure is somewhat improved to the 200s over 110s. We will still administer an additional 10 mg of IV hydralazine. In addition we will order CTA of the chest to assess for evidence of pulmonary embolism. Repeat assessment again at 6:30 PM, the patient reports that her symptoms are unchanged. She is laughing and smiling in the bed and does appear comfortable. Her blood pressure is improved to 170/100. CTA of the chest shows no evidence of pulmonary embolism. Given the possibility of new onset CHF with her cardiomegaly seen on chest x-ray we will administer 20 mg of IV Lasix and admit the patient to medicine for further work-up and management. Critical Care Time: Yes (40) Critical care time in (mins) excluding proc time.: 40 Critical care attestation.: If time is entered above; I have spent that time in minutes in the direct care of this critically ill patient, excluding procedure time. Critical care time was spent in the assessment, work-up, and management of critical hypertensive emergency requiring several IV antihypertensives as well as suspected new onset congestive heart failure requiring IV Lasix. ED Disposition Clinical Impression: Hypertensive emergency Congestive heart failure Qualifiers: Heart failure type: unspecified Disposition: DC-09 OP ADMIT IP TO THIS HOSP Is pt being admited?: Yes Condition: Stable Instructions: Hypertension (ED)
[2021-05-16 16:57] LABS: RBC Morphology Normal; Total Cells Counted 100
--- NOTE | 2021-05-16 17:29 | XRay Report ---
XR chest 1V ap INDICATION / CLINICAL INFORMATION: CP. COMPARISON: 04/18/2020 FINDINGS: SUPPORT DEVICES: None. HEART /PULMONARY VASCULATURE: Cardiac enlargement with pulmonary vasculature congestion. LUNGS / PLEURA: No significant pulmonary or pleural abnormality. No pneumothorax. ADDITIONAL FINDINGS: No significant additional findings. IMPRESSION: Cardiomegaly without overt failure or other acute chest process. Signer Name: Juan Cat MD Signed: 05/16/2021 5:24 PM Workstation Name: [id number]
--- NOTE | 2021-05-16 18:17 | Cat Scan Report ---
CTA CHEST WITH CONTRAST INDICATION / CLINICAL INFORMATION: rule out PE. Chest pain. TECHNIQUE: Axial CT images were obtained through the chest after injection of 100 mL Omnipaque 350 IV contrast. 3 plane MIP and/or 3D reconstructions were produced. All CT scans at this location are per formed using CT dose reduction for ALARA by means of automated exposure control. COMPARISON: No prior chest CT. Chest radiograph from earlier on same date. FINDINGS: PULMONARY ARTERIES: No pulmonary emboli. THORACIC AORTA: No significant abnormality. HEART: Heart is moderately enlarged involving all chambers. CORONARY ARTERY CALCIFICATION: None. MEDIASTINUM / DARRYL: Calcified subcarinal lymph node but no significant adenopathy. PLEURA: No pleural effusion. No pneumothorax. LUNGS: No acute air space or interstitial disease. Incidental pulmonary nodule in the right upper lob e measuring 6 mm seen on axial series 2 image 27. ADDITIONAL FINDINGS: None. UPPER ABDOMEN: No acute findings. SKELETAL STRUCTURES: No significant osseous abnormality. IMPRESSION: 1. No CT evidence for pulmonary embolism. 2. No acute pulmonary or pleural findings. 3. Single incidental pulmonary nodule(s) in the right upper lobe measuring 6 mm with solid characteri stics. Recommendation according to Fleischner Society 2017 Guidelines: Low Risk Patient: CT at 6-12 m [facility], then consider CT at 18-24 months; High Risk Patient: CT at 6-12 months, then CT at 18-24 month s Signer Name: Garry Ramirez MD Signed: 05/16/2021 6:12 PM Workstation Name: [id number]
[2021-05-16] MEDS ORDERED: FUROSEMIDE 20 MG/2 ML INJ IV ONE (18:36)
[2021-05-16] MEDS ORDERED: ACETAMINOPHEN 325 MG TAB PO PRN (19:37)
[2021-05-16] MEDS ORDERED: oxyCODONE /ACETAMINOPHEN 5-325MG TAB PO PRN (19:37)
[2021-05-16] MEDS ORDERED: NON-FORMULARY EACH (Losartan [Cozaar] 100 MG Tablet) PO SCH (19:45)
[2021-05-16] MEDS ORDERED: VALSARTAN 160MG TAB PO SCH (22:00)
[2021-05-16] MEDS ORDERED: carvediloL 12.5 MG TAB PO SCH (22:00)
[2021-05-16] MEDS: amLODIPine 10 MG TAB PO SCH (22:20)
[2021-05-16] MEDS: hydrALAZINE 100 MG TAB PO SCH (22:20)
[2021-05-17] MEDS: hydrALAZINE 100 MG TAB PO SCH (04:31)
--- NOTE | 2021-05-17 07:01 | History and Physical Report ---
History of Present Illness Date of examination: 05/16/21 Date of admission: 05/16/21 20:05 Chief complaint: Chest discomfort for 3 days History of present illness: 45-year-old obesity and asthma comes in for 3 days of chest pain which is retrosternal and intermittent in nature. No diaphoresis. No shortness of breath. No radiation. Chest pain worse with exertion. Also intermittent episodes of palpitations. She went to her PCP and was found to have a have a h igh blood pressure with systolic in the 230s and diastolic in 140 and was sent to the hospital for evaluation and treatment. No fever or chills. No cough. No exposure to coronavirus. No syncope. Noncompliant with the blood pressure medications. Heart Score - HEART Score History: Moderately suspicious EKG: Normal Age: 45-65 Risk factors: 1-2 risk factors Troponin: < normal limit HEART Score: 3 - Past Medical History --Hypertension: Yes --Diabetes: No --Asthma: Yes - Surgical History Additional Surgical History: Carpal Tunnel - Social History Smoking Status: Never Smoker Substance Use Type: None Review of Systems ROS: Stated complaint: CHEST PAIN HIGH BP Other details as noted in HPI Constitutional: denies: chills, fever Eyes: denies: eye pain, vision change ENT: denies: throat pain, congestion Respiratory: shortness of breath. denies: cough Cardiovascular: chest pain, palpitations, edema. denies: syncope Gastrointestinal: denies: abdominal pain, nausea, vomiting Genitourinary: denies: dysuria, frequency Musculoskeletal: denies: back pain, myalgia Skin: denies: rash Neurological: denies: headache, weakness Medications and Allergies Allergies Allergy/AdvReac Type Severity Reaction Status Date / Time No Known Allergies Allergy Verified 05/16/21 13:40 Home Medications Medication Instructions Recorded Confirmed Last Taken Type Acetaminophen [Acetaminophen TAB] 2 tab PO Q4H PRN #15 tablet 07/12/19 04/18/20 04/18/20 Rx Losartan [Cozaar] 100 mg PO QDAY #30 tablet 07/12/19 04/18/20 04/18/20 Rx Valsartan [Diovan] 160 mg PO Q12HR #60 tablet 04/19/20 Unknown Rx amLODIPine 10 mg PO QDAY #30 tablet 04/19/20 Unknown Rx carvediloL [Coreg] 12.5 mg PO BID #60 tablet 04/19/20 Unknown Rx hydrALAZINE [Apresoline TAB] 100 mg PO Q8H #90 tab 04/19/20 Unknown Rx oxyCODONE /ACETAMINOPHEN [Percocet 1 tab PO Q6H PRN #10 tablet 04/19/20 Unknown Rx 5/325 mg] Naproxen 500 mg PO BID #20 tablet 07/18/20 Unknown Rx traMADoL [Ultram 50 MG tab] 50 mg PO Q6HR PRN #12 tablet 07/18/20 Unknown Rx Active Meds: Active Medications Acetaminophen (Acetaminophen 325 Mg Tab) 650 mg PO Q4H PRN PRN Reason: Pain MILD(1-3)/Fever >100.5/[facility] Amlodipine Besylate (Amlodipine 10 Mg Tab) 10 mg PO QDAY [facility] Last Admin: 05/16/21 22:20 Dose: 10 mg Documented by: Carvedilol (Carvedilol 12.5 Mg Tab) 12.5 mg PO BID [facility] Last Admin: 05/16/21 22:20 Dose: 12.5 mg Documented by: Hydralazine HCl (Hydralazine 100 Mg Tab) 100 mg PO Q8H [facility] Last Admin: 05/17/21 04:31 Dose: 100 mg Documented by: Oxycodone/Acetaminophen (Oxycodone /Acetaminophen 5-325mg Tab) 1 tab PO Q6H PRN PRN Reason: Pain, Moderate (4-6) Valsartan (Valsartan 160mg Tab) 160 mg PO Q12HR [facility] Last Admin: 05/16/21 22:20 Dose: 160 mg Documented by: Exam - Constitutional Vitals: Temp Pulse Resp BP Pulse Ox 98.5 F 85 18 120/69 99 05/17/21 03:39 05/17/21 03:39 05/17/21 03:39 05/17/21 03:39 05/17/21 03:39 General appearance: Present: no acute distress, well-nourished - EENT Eyes: Present: PERRL ENT: hearing intact, clear oral mucosa - Neck Neck: Present: supple, normal ROM - Respiratory Respiratory effort: normal Respiratory: bilateral: CTA - Cardiovascular Heart rate: 78 Rhythm: regular Heart Sounds: Present: S1 & S2. Absent: rub, click - Extremities Extremities: no ischemia, pulses symmetrical, No edema Peripheral Pulses: within normal limits - Abdominal General gastrointestinal: Present: soft, non-tender, non-distended, normal bowel sounds Female genitourinary: Present: normal - Rectal Rectal Exam: deferred - Integumentary Integumentary: Present: clear, warm, dry - Musculoskeletal Musculoskeletal: gait normal, strength equal bilaterally - Psychiatric Psychiatric: appropriate mood/affect, intact judgment & insight - Neurologic Neurologic: CNII-XII intact, moves all extremities - Allied Health Allied health notes reviewed: nursing, case management HEART Score - HEART Score EKG: Normal Age: 45-65 Risk factors: 1-2 risk factors Troponin: Troponin T < 0.010 ng/mL (0.00-0.029) 05/16/21 19:29 Troponin: < normal limit Results - Labs CBC & Chem 7: 05/16/21 14:13 05/16/21 14:13 Labs: Laboratory Last Values WBC 6.6 K/mm3 (4.5-11.0) 05/16/21 14:13 RBC 4.40 M/mm3 (3.65-5.03) 05/16/21 14:13 Hgb 11.5 gm/dl (10.1-14.3) 05/16/21 14:13 Hct 35.4 % (30.3-42.9) 05/16/21 14:13 MCV 80 fl (79-97) 05/16/21 14:13 MCH 26 pg (28-32) L 05/16/21 14:13 MCHC 33 % (30-34) 05/16/21 14:13 RDW 17.5 % (13.2-15.2) H 05/16/21 14:13 Plt Count 371 K/mm3 (140-440) 05/16/21 14:13 Add Manual Diff Complete 05/16/21 14:13 Total Counted 100 05/16/21 14:13 Seg Neuts % (Manual) 43.0 % (40.0-70.0) 05/16/21 14:13 Lymphocytes % (Manual) 44.0 % (13.4-35.0) H 05/16/21 14:13 Monocytes % (Manual) 7.0 % (0.0-7.3) 05/16/21 14:13 Eosinophils % (Manual) 4.0 % (0.0-4.3) 05/16/21 14:13 Basophils % (Manual) 2.0 % (0.0-1.8) H 05/16/21 14:13 Nucleated RBC % Not Reportable 05/16/21 14:13 Seg Neutrophils # Man 2.8 K/mm3 (1.8-7.7) 05/16/21 14:13 Band Neutrophils # 0.0 K/mm3 05/16/21 14:13 Lymphocytes # (Manual) 2.9 K/mm3 (1.2-5.4) 05/16/21 14:13 Abs React Lymphs (Man) 0.0 K/mm3 05/16/21 14:13 Monocytes # (Manual) 0.5 K/mm3 (0.0-0.8) 05/16/21 14:13 Eosinophils # (Manual) 0.3 K/mm3 (0.0-0.4) 05/16/21 14:13 Basophils # (Manual) 0.1 K/mm3 (0.0-0.1) 05/16/21 14:13 Metamyelocytes # 0.0 K/mm3 05/16/21 14:13 Myelocytes # 0.0 K/mm3 05/16/21 14:13 Promyelocytes # 0.0 K/mm3 05/16/21 14:13 Blast Cells # 0.0 K/mm3 05/16/21 14:13 WBC Morphology Not Reportable 05/16/21 14:13 Hypersegmented Neuts Not Reportable 05/16/21 14:13 Hyposegmented Neuts Not Reportable 05/16/21 14:13 Hypogranular Neuts Not Reportable 05/16/21 14:13 Smudge Cells Not Reportable 05/16/21 14:13 Toxic Granulation Not Reportable 05/16/21 14:13 Toxic Vacuolation Not Reportable 05/16/21 14:13 Dohle Bodies Not Reportable 05/16/21 14:13 Pelger-Huet Anomaly Not Reportable 05/16/21 14:13 Tory Rods Not Reportable 05/16/21 14:13 Platelet Estimate Not Reportable 05/16/21 14:13 Clumped Platelets Not Reportable 05/16/21 14:13 Plt Clumps, EDTA Not Reportable 05/16/21 14:13 Large Platelets Not Reportable 05/16/21 14:13 Giant Platelets Not Reportable 05/16/21 14:13 Platelet Satelliting Not Reportable 05/16/21 14:13 Plt Morphology Comment Not Reportable 05/16/21 14:13 RBC Morphology Normal 05/16/21 14:13 Dimorphic RBCs Not Reportable 05/16/21 14:13 Polychromasia Not Reportable 05/16/21 14:13 Hypochromasia Not Reportable 05/16/21 14:13 Poikilocytosis Not Reportable 05/16/21 14:13 Anisocytosis Not Reportable 05/16/21 14:13 Microcytosis Not Reportable 05/16/21 14:13 Macrocytosis Not Reportable 05/16/21 14:13 Spherocytes Not Reportable 05/16/21 14:13 Pappenheimer Bodies Not Reportable 05/16/21 14:13 Sickle Cells Not Reportable 05/16/21 14:13 Target Cells Not Reportable 05/16/21 14:13 Tear Drop Cells Not Reportable 05/16/21 14:13 Ovalocytes Not Reportable 05/16/21 14:13 Helmet Cells Not Reportable 05/16/21 14:13 [place] Bodies Not Reportable 05/16/21 14:13 Mobile Rings Not Reportable 05/16/21 14:13 Calista Cells Not Reportable 05/16/21 14:13 Bite Cells Not Reportable 05/16/21 14:13 Crenated Cell Not Reportable 05/16/21 14:13 Elliptocytes Not Reportable 05/16/21 14:13 Acanthocytes (Spur) Not Reportable 05/16/21 14:13 Rouleaux Not Reportable 05/16/21 14:13 Hemoglobin C Crystals Not Reportable 05/16/21 14:13 Schistocytes Not Reportable 05/16/21 14:13 Malaria parasites Not Reportable 05/16/21 14:13 Wilfred Bodies Not Reportable 05/16/21 14:13 Hem Pathologist Commnt No 05/16/21 14:13 Sodium 135 mmol/L (137-145) L 05/16/21 14:13 Potassium 3.6 mmol/L (3.6-5.0) 05/16/21 14:13 Chloride 96.4 mmol/L (98-107) L 05/16/21 14:13 Carbon Dioxide 27 mmol/L (22-30) 05/16/21 14:13 Anion Gap 15 mmol/L 05/16/21 14:13 BUN 9 mg/dL (7-17) 05/16/21 14:13 Creatinine 0.6 mg/dL (0.6-1.2) 05/16/21 14:13 Estimated GFR > 60 ml/min 05/16/21 14:13 BUN/Creatinine Ratio 15 % 05/16/21 14:13 Glucose 92 mg/dL (65-100) 05/16/21 14:13 Calcium 9.3 mg/dL (8.4-10.2) 05/16/21 14:13 Magnesium 1.90 mg/dL (1.7-2.3) 05/16/21 15:17 Total Bilirubin 0.40 mg/dL (0.1-1.2) 05/16/21 14:13 AST 16 units/L (5-40) 05/16/21 14:13 ALT 10 units/L (7-56) 05/16/21 14:13 Alkaline Phosphatase 66 units/L (35-129) 05/16/21 14:13 Troponin T < 0.010 ng/mL (0.00-0.029) 05/16/21 19:29 NT-Pro-B Natriuret Pep 443.2 pg/mL (0-450) 05/16/21 15:17 Total Protein 7.5 g/dL (6.3-8.2) 05/16/21 14:13 Albumin 4.1 g/dL (3.9-5) 05/16/21 14:13 Albumin/Globulin Ratio 1.2 % 05/16/21 14:13 HCG, Qual Negative (Negative) 05/16/21 15:17 Short CBC 05/16/21 Range/Units 14:13 WBC 6.6 (4.5-11.0) K/mm3 Hgb 11.5 (10.1-14.3) gm/dl Hct 35.4 (30.3-42.9) % Plt Count 371 (140-440) K/mm3 BMP 05/16/21 14:13 Sodium 135 L Potassium 3.6 Chloride 96.4 L Carbon Dioxide 27 BUN 9 Creatinine 0.6 Glucose 92 Calcium 9.3 Cardiac Enzymes 05/16/21 05/16/21 05/16/21 Range/Units 14:13 16:16 19:29 Troponin T < 0.010 < 0.010 < 0.010 (0.00-0.029) ng/mL Liver Function 05/16/21 Range/Units 14:13 Total Bilirubin 0.40 (0.1-1.2) mg/dL AST 16 (5-40) units/L ALT 10 (7-56) units/L Alkaline Phosphatase 66 (35-129) units/L Albumin 4.1 (3.9-5) g/dL Short CBC 05/16/21 Range/Units 14:13 WBC 6.6 (4.5-11.0) K/mm3 Hgb 11.5 (10.1-14.3) gm/dl Hct 35.4 (30.3-42.9) % Plt Count 371 (140-440) K/mm3 BMP 05/16/21 14:13 Sodium 135 L Potassium 3.6 Chloride 96.4 L Carbon Dioxide 27 BUN 9 Creatinine 0.6 Glucose 92 Calcium 9.3 Cardiac Enzymes 05/16/21 05/16/21 05/16/21 Range/Units 14:13 16:16 19:29 Troponin T < 0.010 < 0.010 < 0.010 (0.00-0.029) ng/mL Liver Function 05/16/21 Range/Units 14:13 Total Bilirubin 0.40 (0.1-1.2) mg/dL AST 16 (5-40) units/L ALT 10 (7-56) units/L Alkaline Phosphatase 66 (35-129) units/L Albumin 4.1 (3.9-5) g/dL - Diagnostic Impressions Diagnostic Impressions: CTA chest No CT evidence of pulmonary embolism No acute pulmonary or pleural findings Single incidental pulmonary nodule which requires follow-up from 6 to 12 months [place]/IV: Voiding Method Toilet Assessment and Plan Advance Directives: Yes (Full code) VTE prophylaxis?: Chemical Plan of care discussed with patient/family: Yes - Patient Problems (1) Hypertensive emergency Current Visit: Yes Status: Acute Plan to address problem: Blood pressure medications restarted Compliance consult IV hydralazine 10 mg every 3 hours as needed (2) Acute coronary syndrome Current Visit: Yes Status: Acute Plan to address problem: Serial troponins and Lexiscan in the morning (3) Asthma Current Visit: No Status: Inactive Plan to address problem: Albuterol inhaler as needed (4) DVT prophylaxis Current Visit: No Status: Acute Plan to address problem: On heparin and GI prophylaxis
[2021-05-17 08:23] VITALS: BP 129/71
[2021-05-17] MEDS ORDERED: PANTOPRAZOLE 40 MG TAB PO SCH (09:00)
--- NOTE | 2021-05-17 09:00 | Consultation ---
History of Present Illness Consult date: 05/17/21 Requesting physician: ANDI OTTO Consult reason: chest pain History of present illness: 45-year-old Afro-[place]og[place] female with morbid obesity hypertension for the last several weeks been having some intermittent chest pain with palpitations at nighttime. Patient states with activity sometimes would feel heart racing. Pain is described midsternal worse with deep breathing. Patient has received 1 COVID-19 vaccination. Patient denies any fever chills syncope nausea vomiting or melena. Patient's symptomology is not with exertion of chest pain. Reproducible with deep breathing. Denies any trauma to the chest. Past History Past Medical History: hypertension Past Surgical History: Other (wrist surgery and elbow) Social history: denies: smoking, alcohol abuse, IV drug use Medications and Allergies Allergies Allergy/AdvReac Type Severity Reaction Status Date / Time No Known Allergies Allergy Verified 05/16/21 13:40 Home Medications Medication Instructions Recorded Confirmed Last Taken Type Acetaminophen [Acetaminophen TAB] 2 tab PO Q4H PRN #15 tablet 07/12/19 04/18/20 05/16/21 10:00 Rx 10 mg amLODIPine 10 mg PO QDAY #30 tablet 04/19/20 05/17/21 Unknown Rx Naproxen 500 mg PO BID #20 tablet 07/18/20 05/16/21 09:00 Rx Active Meds: Active Medications Acetaminophen (Acetaminophen 325 Mg Tab) 650 mg PO Q4H PRN PRN Reason: Pain MILD(1-3)/Fever >100.5/[place] Amlodipine Besylate (Amlodipine 10 Mg Tab) 10 mg PO QDAY [facility] Last Admin: 05/16/21 22:20 Dose: 10 mg Documented by: Carvedilol (Carvedilol 12.5 Mg Tab) 12.5 mg PO BID [facility] Last Admin: 05/16/21 22:20 Dose: 12.5 mg Documented by: Hydralazine HCl (Hydralazine 100 Mg Tab) 100 mg PO Q8H [facility] Last Admin: 05/17/21 04:31 Dose: 100 mg Documented by: Oxycodone/Acetaminophen (Oxycodone /Acetaminophen 5-325mg Tab) 1 tab PO Q6H PRN PRN Reason: Pain, Moderate (4-6) Pantoprazole Sodium (Pantoprazole 40 Mg Tab) 40 mg PO QDAC [facility] Valsartan (Valsartan 160mg Tab) 160 mg PO Q12HR [facility] Last Admin: 05/16/21 22:20 Dose: 160 mg Documented by: Review of Systems All systems: negative (As per the HPI) Physical Examination Vital Signs Temp Pulse Resp BP Pulse Ox 98.2 F 101 H 24 236/145 99 05/16/21 13:46 05/16/21 13:46 05/16/21 13:46 05/16/21 13:46 05/16/21 13:46 General appearance: no acute distress, well-nourished HEENT: Positive: PERRL, Mucus Membranes Moist Neck: Positive: neck supple, trachea midline Cardiac: Positive: Reg Rate and Rhythm, S1/S2. Negative: Audible Murmur Lungs: Positive: clear to auscultation, Normal Breath Sounds Neuro: Positive: Grossly Intact Abdomen: Positive: Soft, Active Bowel Sounds. Negative: Tender, Distended Female genitourinary: deferred Skin: Positive: Clear Incision: Cardiac Cath Site Musculoskeletal: No Pain, Normal Range of Motion Extremities: Present: normal. Absent: edema Results 05/16/21 14:13 05/16/21 14:13 Cardiac Enzymes 05/16/21 Range/Units 14:13 AST 16 (5-40) units/L CBC 05/16/21 Range/Units 14:13 WBC 6.6 (4.5-11.0) K/mm3 RBC 4.40 (3.65-5.03) M/mm3 Hgb 11.5 (10.1-14.3) gm/dl Hct 35.4 (30.3-42.9) % Plt Count 371 (140-440) K/mm3 Comprehensive Metabolic Panel 05/16/21 Range/Units 14:13 Sodium 135 L (137-145) mmol/L Potassium 3.6 (3.6-5.0) mmol/L Chloride 96.4 L (98-107) mmol/L Carbon Dioxide 27 (22-30) mmol/L BUN 9 (7-17) mg/dL Creatinine 0.6 (0.6-1.2) mg/dL Glucose 92 (65-100) mg/dL Calcium 9.3 (8.4-10.2) mg/dL AST 16 (5-40) units/L ALT 10 (7-56) units/L Alkaline Phosphatase 66 (35-129) units/L Total Protein 7.5 (6.3-8.2) g/dL Albumin 4.1 (3.9-5) g/dL EKG interpretations - Telemetry EKG Rhythm: Sinus Rhythm Assessment and Plan 45-year-old female with morbid obesity hypertension patient takes amlodipine 10 mg and hydrochlorothiazide BP is better controlled has palpitations start Toprol-XL 25 mg EKG sinus rhythm no ST-T abnormalities negative troponin. Patient's heart score is 2. Patient may be discharged from cardiovascular point of view with beta-ros therapy and anti-inflammatories and follow-up in the [place] in 1 to 2 weeks. Patient advised to reduce caffeine intake. office [phone] - Patient Problems (1) Morbid obesity due to excess calories Current Visit: Yes Status: Chronic (2) Hypertensive emergency Current Visit: Yes Status: Acute (3) Chest pain Current Visit: No Status: Acute Qualifiers: Chest pain type: chest pain on breathing Qualified Code(s): R07.1 - Chest pain on breathing; R07.81 - Pleurodynia
[2021-05-17] MEDS: amLODIPine 10 MG TAB PO SCH (09:48)
--- NOTE | 2021-05-17 09:52 | Electrocardiograph Report ---
[facility] Test Date: 2021-05-16 Test Time: 13:51:17 Pat Name: AVELINA HOOD Department: Room: A486 Gender: F Trial Court Judge: IGNACIO : 1975 Requested By: ED DOC Order Number: [id number] Reading MD: Diego Caldera Measurements Intervals [place] Rate: 98 P: 61 WV: 162 QRS: -7 QRSD: 105 T: 51 QT: 380 QTc: 486 Interpretive Statements Sinus rhythm Probable left atrial enlargement Left ventricular hypertrophy No previous ECG available for comparison Electronically Signed On 05-17-2021 9:51:43 EDT by Diego Caldera
[2021-05-17] MEDS ORDERED: METOPROLOL SUCCINATE XL 25 MG TAB PO SCH (10:00)
--- NOTE | 2021-05-17 11:42 | Discharge Summary ---
Providers - Providers Date of Admission: 05/16/21 20:05 Date of discharge: 05/17/21 Attending physician: ANDI OTTO 05/17/21 08:36 Consult to Cardiology [CONS] Routine Consulting Provider: SHELTON RODRIGUEZ Reason For Exam: chest pain Primary care physician: [facility] Hospitalization Reason for admission: Chest pain Condition: Stable Pertinent studies: CTA chest negative for PE Hospital course: Chest discomfort for 3 days History of present illness: 45-year-old obesity and asthma comes in for 3 days of chest pain which is retrosternal and intermittent in nature. No diaphoresis. No shortness of breath. No radiation. Chest pain worse with exertion. Also intermittent episodes of palpitations. She went to her PCP and was found to have a have a high blood pressure with systolic in the 230s and diastolic in 140 and was sent to the hospital for evaluation and treatment. No fever or chills. No cough. No exposure to coronavirus. No syncope. Noncompliant with the blood pressure medications. 05/17 patient is alert and oriented and not in any distress. Complains of substernal chest discomfort described as constant nonradiating and nonexertional for the past several days. Serial troponin levels were negative for MS. Cardiology consulted and discussed with . Patient has been cleared for discharge and she will follow up with cardiology in 5 to 7 days. She is medically stable for discharge assessment Atypical chest pain MS ruled out with serial troponins EKG reviewed CTA chest negative for acute pulmonary embolism Cardiology note reviewed Patient has moderate tenderness over the lower end of the sternum Per recommendations by cardiology will discharge the patient on NSAIDs x5 days Hypertensive urgency Improved Continue Toprol-XL 25 mg daily Morbid obesity Secondary to excess calories Counseled patient regarding weight, exercise and diet Disposition: DC-01 TO HOME OR SELFCARE Final Discharge Diagnosis (Prints w/discharge instructions): Atypical chest pa in. Hypertensive urgency Time spent for discharge: 34 minutes Core Measure Documentation - Palliative Care Palliative Care/ Comfort Measures: Not Applicable - Core Measures Any of the following diagnoses?: none Exam - Constitutional Vitals: Temp Pulse Resp BP Pulse Ox 99.1 F 82 20 129/71 97 05/17/21 08:08 05/17/21 11:00 05/17/21 08:08 05/17/21 09:48 05/17/21 11:21 General appearance: Present: no acute distress, obese - EENT Eyes: Present: PERRL, EOM intact ENT: hearing intact, clear oral mucosa - Neck Neck: Present: supple, normal ROM - Respiratory Respiratory effort: normal Respiratory: bilateral: CTA - Cardiovascular Rhythm: regular Heart Sounds: Present: S1 & S2 - Extremities Extremities: No edema Peripheral Pulses: within normal limits - Abdominal General gastrointestinal: Present: soft, non-tender Female genitourinary: Present: deferred - Rectal Rectal Exam: deferred - Integumentary Integumentary: Present: clear - Musculoskeletal Musculoskeletal: strength equal bilaterally - Psychiatric Psychiatric: appropriate mood/affect - Neurologic Neurologic: no focal deficits Plan Activity: advance as tolerated Weight Bearing Status: Full Weight Bearing Diet: regular, low fat, low cholesterol, low salt Follow up with: PRIMARY CAREMD [Primary Care Provider] - 7 Days SHELTON RODRIGUEZ MD [Staff Physician] - 7 Days Prescriptions: amLODIPine 10 mg PO QDAY #30 tablet hydrALAZINE [Apresoline TAB] 25 mg PO Q8H 30 Days #90 tab Metoprolol Xl [Metoprolol SUCCINATE ER TAB] 25 mg PO QDAY #30 tablet Naproxen 500 mg PO BID #10 tablet Pantoprazole [Protonix TAB] 40 mg PO QDAC #30 tablet
== END 2021-05-17 13:15 | disposition home or self-care (01) ==
LOC: ED 13:20 → 4A 20:05
PROVIDERS: ADMIT Internal Medicine; ATTEND Internal Medicine
DX: I24.9 Acute ischemic heart disease, unspecified (principal); I16.0 Hypertensive urgency; J45.909 Unspecified asthma, uncomplicated; E66.01 Morbid (severe) obesity due to excess calories; R07.89 Other chest pain; Z79.899 Other long term (current) drug therapy; Z98.890 Other specified postprocedural states; Z68.42 Body mass index [BMI] 45.0-49.9, adult
CPT/HCPCS: 36415; 71045; 71275; 80053; 83735; 83880; 84484; 84703; 85025; 93005; 94644; 96374; 96375; 96376; 99291; G0378; J0360; J1940; Q9967; 85007

== ENCOUNTER 2021-05-22 10:04 | Outpatient (CLI) | payer OTHER ==
--- NOTE | 2021-05-22 12:05 | Fluoroscopy Report ---
BARIUM SWALLOW Indication: DYSPHAGIA. Technique: Single and double contrast barium technique utilized to evaluate the esophagus. FINDINGS: To begin the exam, swallowing was evaluated in the lateral position under direct fluorosco py. Swallowing was normal. The esophagus has an unremarkable appearance on fluoroscopy. No mucosal irregularity, mass, mass effe ct, or critical stenosis. Occasional tertiary contractions were noted cyst in the mid to distal eso phagus with mild delayed emptying of the esophagus suggesting mild esophageal dysmotility. No gastroe sophageal reflux. The patient was able to ingest and pass a barium tablet without difficulty. IMPRESSION: Mild esophageal dysmotility is suspected with mild delayed esophageal emptying. No suspi cious mucosal lesion, mass or stenosis. Fluoroscopic time: 2.4 minutes Number of fluoroscopic images: 25 Signer Name: Rogelio Knapp Jr, MD Signed: 05/22/2021 12:01 PM Workstation Name: [id number]
== END 2021-05-22 10:05 | disposition home or self-care (01) ==
LOC: FLUORO 10:04
PROVIDERS: ATTEND Chiropractor
DX: R13.10 Dysphagia, unspecified (principal); K22.8 Other specified diseases of esophagus
CPT/HCPCS: 74220

== ENCOUNTER 2022-01-14 11:04 | Observation (INO) | payer OTHER ==
[2022-01-08 10:14] LABS: Basophils # (Auto) 0.2 K/mm3 (0.0-0.1); Basophils % (Auto) 2.4 % (0.0-1.8); Eosinophils # (Auto) 0.1 K/mm3 (0.0-0.4); Hematocrit 33.7 % (30.3-42.9); Hemoglobin 12.1 gm/dl (10.1-14.3); Lymphocytes # (Auto) 2.2 K/mm3 (1.2-5.4); Lymphocytes % (Auto) 33.6 % (13.4-35.0); Mean Corpuscular HGB Conc 36 % (30-34); Mean Corpuscular Volume 78 fl (79-97); Monocytes # (Auto) 0.6 K/mm3 (0.0-0.8); Platelet Count 386 K/mm3 (140-440); Red Blood Count 4.31 M/mm3 (3.65-5.03); Red Cell Distribution Width 16.8 % (13.2-15.2)
[2022-01-08 10:37] LABS: Blood Urea Nitrogen 12 mg/dL (7-17); Calcium 9.5 mg/dL (8.4-10.2); Hemolysis Index 4
[2022-01-08 11:15] LABS: BUN/Creatinine Ratio 20
--- NOTE | 2022-01-08 16:46 | Anesthesia Consultation ---
Anesthesia Consult and Med Hx Date of service: 01/14/22 - Airway Anesthetic Teeth Evaluation: Good ROM Head & Neck: Adequate Mental/Hyoid Distance: Adequate Mallampati Class: Class I Intubation Access Assessment: Good - Pre-Operative Health Status ASA Pre-Surgery Classification: ASA3 Proposed Anesthetic Plan: General Nerve Block: TAP - Pulmonary Hx Smoking: No Hx Asthma: Yes ( CHILD) Hx Respiratory Symptoms: No (+2FS) COPD: No Hx Pneumonia: No Hx Sleep Apnea: No (WAS BEFORE TOOK HER OFF C-PAP) - Cardiovascular System Hx Hypertension: Yes Hx Coronary Artery Disease: No (Had negative NST here) Hx Cardia Arrhythmia: Yes (Had palpitations with panic attack) - Central Nervous System Hx Back Pain: Yes (LOWER) Hx Psychiatric Problems: Yes (Anxiety) - Gastrointestinal Hx Gastroesophageal Reflux Disease: No - Endocrine Hx End Stage Renal Disease: No - Hematic Hx Anemia: No Hx Sickle Cell Disease: No - Other Systems Hx Cancer: No Hx Obesity: Yes (BMI-48.7 KG)
[~2022-01-14 11:04] MED LIST: ACETAMINOPHEN 500 MG TAB ONE; ACETAMINOPHEN 500 MG TAB PO ONE; CELECOXIB 200 MG CAP PO NR; GABAPENTIN 300 MG CAP PO NR; LACTATED RINGERS 1,000 ML IV SCH; MAGNESIUM OXIDE 400 MG TAB PO ONE; MIDAZOLAM 2 MG/2 ML INJ IV NR; fentaNYL 100 MCG/2 ML INJ IV ONE; fentaNYL 100 MCG/2 ML INJ ONE
[2022-01-14] MEDS ORDERED: dexAMETHasone 4 MG/ML VIAL ONE (11:32)
[2022-01-14] MEDS ORDERED: BUPIVACAINE/PF (0.25%) 2.5 MG/ML 30 ML VIAL INFILTRATI ONE (11:32)
--- NOTE | 2022-01-14 11:37 | Anesthesia Day of Surgery ---
Anesthesia Day of Surgery - Day of Surgery Patient Examined: Yes Patient H&P Reviewed: Yes Patient is NPO: Yes Beta Blockers: Yes
[2022-01-14] MEDS ORDERED: MAGNESIUM OXIDE 400 MG TAB PO ONE (11:43)
[2022-01-14] MEDS ORDERED: oxyCODONE /ACETAMINOPHEN 5-325MG TAB PO PRN (12:00)
[2022-01-14] MEDS ORDERED: NEOMY 40 MG/POLYMYXIN B 200,000 UNITS/ML (GU) AMPULE IR ONE ×2 (12:00→13:59)
[2022-01-14] MEDS ORDERED: HYDROmorphone 1 MG/1 ML INJ IV PRN ×2 (12:00)
--- NOTE | 2022-01-14 12:14 | Short Stay Summary ---
Short Stay Documentation Date of service: 01/14/22 Narrative H&P: 46y/o with symptomatic uterine fibroids. Pelvic ultrasound demonstrated an enlarged fibroid uterus measuring 12.4cm. The largest leiomyoma measures 7.4cm. She reports heavy painful menses. She desires definitive surgical management. - History Principal diagnosis: Uterine fibroids Past Medical History: hypertension Past Surgical History: Other (wrist surgery) Social history: single - Allergies and Medications Current Medications: Allergies No Known Allergies Allergy (Verified 05/16/21 13:40) Home Medications Medication Instructions Recorded Confirmed Last Taken Type amLODIPine 10 mg PO QDAY #30 tablet 05/17/21 01/14/22 01/14/22 08:30 Rx Metoprolol Xl [Metoprolol 50 mg PO QDAY 01/07/22 01/14/22 01/14/22 08:30 History SUCCINATE ER TAB] Vitamin D (Nf) 1 cap PO 1XW 01/07/22 01/14/22 01/09/22 09:00 History hydroCHLOROthiazide [HCTZ] 25 mg PO QDAY 01/07/22 01/14/22 01/13/22 09:00 History Active Medications Celecoxib (Celecoxib 200 Mg Cap) 400 mg PO PREOP NR Stop: 01/14/22 23:59 Last Admin: 01/14/22 11:48 Dose: 400 mg Gabapentin (Gabapentin 300 Mg Cap) 300 mg PO PREOP NR Stop: 01/14/22 23:59 Last Admin: 01/14/22 11:47 Dose: 300 mg Hydromorphone HCl (Hydromorphone 1 Mg/1 Ml Inj) 0.25 mg IV Q10MIN PRN PRN Reason: Pain, Moderate (4-6) Stop: 01/14/22 17:00 Hydromorphone HCl (Hydromorphone 1 Mg/1 Ml Inj) 0.5 mg IV Q10MIN PRN PRN Reason: Pain , Severe (7-10) Stop: 01/14/22 17:00 Lactated Ringer's (Lactated Ringers) 1,000 mls @ 125 mls/hr IV DIRECT KATHRIN Last Admin: 01/14/22 11:50 Dose: 125 mls/hr Midazolam HCl (Midazolam 2 Mg/2 Ml Inj) 2 mg IV PREOP NR Stop: 01/14/22 23:59 Last Admin: 01/14/22 11:51 Dose: 2 mg Oxycodone/Acetaminophen (Oxycodone /Acetaminophen 5-325mg Tab) 1 tab PO ONCE PRN PRN Reason: Pain, Moderate (4-6) Stop: 01/14/22 18:00 - Physical exam General appearance: no acute distress Integumentary: no rash HEENT: Atraumatic Lungs: Clear to auscultation Breasts: deferred Heart: Regular rate Gastrointestinal: normal Female Genitourinary: deferred Rectal Exam: deferred - Brief post op/procedure progress note Date of procedure: 01/14/22 Pre-op diagnosis: Symptomatic uterine fibroids Post-op diagnosis: same Procedure: Robotic hysterectomy bilateral salpingo-oophorectomy Anesthesia: GETA Surgeon: KATHE SINGH Estimated blood loss: other (125 mL) Pathology: list (Uterus, cervix, bilateral fallopian tubes and ovaries, leiomyomas) Specimen disposition: to lab Condition: stable - Hospital course Hospital course: The patient was admitted the day of surgery underwent a robotic hysterectomy bilateral salpingo-oophorectomy. Please see operative note for details of surgery. Her postoperative course was uneventful. - Disposition Condition at discharge: Good Disposition: 01 HOME / SELF CARE / HOMELESS Short Stay Discharge Plan Activity: other (Pelvic rest for 6 weeks) Diet: regular Additional Instructions: Schedule follow-up with Dr. Singh in 4 weeks No tub baths for 4 weeks Patient may shower Pelvic rest for 6 weeks
[2022-01-14] MEDS ORDERED: fentaNYL 100 MCG/2 ML INJ ONE (12:42)
[2022-01-14] MEDS ORDERED: propofoL 200 MG/20 ML VIAL IV ONE (12:42)
[2022-01-14] MEDS ORDERED: LIDOCAINE MPF (2%) 20 MG/1 ML VIAL 5 ML ONE (12:42)
[2022-01-14] MEDS ORDERED: ROCURONIUM 50 MG/5 ML INJ IV ONE (12:42)
[2022-01-14] MEDS ORDERED: ceFAZolin/Water 2 GM/20 ML 2 GM/20 ML SYRINGE IV NR (13:00)
[2022-01-14] MEDS ORDERED: ONDANSETRON 4 MG/2 ML INJ ONE (13:24)
[2022-01-14] MEDS ORDERED: dexAMETHasone 20 MG/5 ML VIAL ONE (13:24)
[2022-01-14] MEDS ORDERED: PHENYLEPHRINE/NS 1,000 MCG/10 ML SYRINGE (OR USE) IV ONE (13:37)
[2022-01-14] MEDS ORDERED: SODIUM CHLORIDE 0.9% IRR 1,500 ML BOTTLE IR ONE (13:37)
[2022-01-14] MEDS ORDERED: ePHEDrine SULFATE 50 MG/1 ML INJ ONE (13:37)
[2022-01-14] MEDS ORDERED: SODIUM CHLORIDE 0.9% IRRIG SOLN 2000 ML IR ONE (13:59)
[2022-01-14] MEDS ORDERED: GLYCOPYRROLATE 0.4 MG/2 ML INJ ONE (14:51)
[2022-01-14] MEDS ORDERED: NEOSTIGMINE 10MG/10 ML INJ MDV ONE (14:51)
--- NOTE | 2022-01-14 14:53 | Operative Report ---
Operative Report Operative Report: Date of surgery: January 14, 2022 Preoperative diagnoses: Symptomatic uterine fibroid Postoperative diagnoses: Same as above Procedure: Robotic hysterectomy and bilateral salpingo-oophorectomy Surgeon: Shannon Williamson M.D. Pickling Grader: Karo Veras Anesthesia: Gen. endotracheal anesthesia Estimated blood loss: 125 mL Pathology: Uterus, cervix, bilateral tubes and ovaries, leiomyomas Indication: 46-year-old with a history of symptomatic uterine fibroids. The patient elected to undergo definitive surgical management. Procedure: The patient was taken to the operating room and given general endotracheal anesthesia without complication. She is prepped and draped in a normal sterile fashion. A bivalve speculum was placed in the patient's vagina and a single- tooth tenaculum placed on the anterior lip of the cervix. The uterus was sounded with the uterine sound. A stay suture was placed at 12 o'clock on the ectocervix. A [employer] uterine manipulator was placed in the bivalve speculum was then removed. Attention was then turned to the patient's abdomen where a 12 millimeter supra umbilical skin incision was then made. A Veress needle was placed and peritoneal entry was verified water-filled syringe. Insufflation of the peritoneal cavity was performed with CO2 gas. The 12 mm trocar was then placed under direct visualization. An additional 8 mm trocar was placed on the patient's left and right lateral side just opposite of the supraumbilical trocar. An additional 5 mm right lateral trocar was then placed as the accessory port. The Monroe Owens device was used to close the fascia of the 12 mm incision. The patient was then placed in steep Trendelenburg. The da Titi robot was then engaged. A fenestrated forcep was placed in arm 2 and a vessel sealer was placed in arm 1. The surgeon then transferred to the surgical console. General survey of the abdomen and pelvis revealed a markedly enlarged fibroid uterus with a right ovarian cyst and tubes bilaterally. The left ovary was normal in appearance. The patient had findings of a fundal leiomyoma mult iple leiomyomas. the infundibulopelvic ligament was then isolated on the right. The vessel sealer was used to coagulate the ligament which was then transected. The tube and ovary were transected from the supply. The round ligament was then coagulated and transected also. The vesicouterine peritoneum was then entered from the patient's right side. The uterine vessels were then coagulated with the vessel sealer. The vessels were then transected . Attention was then turned to the patient's left side where the infundibulopelvic ligament and mesosalpinx were again isolated coagulated and transected. The vesical peritoneum was then entered from the left and joined in the midline. Peritoneum was reflected off of the lower uterine segment. Uterine vessels were then coagulated and then transected. The blood supply to the uterus was adequately contained, a posterior colpotomy was made. The V care ring was visualized. Posterior colpotomy was created with the monopolar scissors. The incision was continued circumferentially until anterior colpotomy was made. A myomectomy was performed in order to decompress the uterus. The uterus also had to be bivalved. The cervix and uterus were amputated from the vaginal cuff. The uterus was then removed along with the tubes and ovaries bilaterally through the vagina and a warm laparotomy sponge was placed and maintain the pneumoperito neum. The vaginal cuff was then closed in a running fashion with V lock suture. Irrigation of the pelvis was performed. Surgicel was applied to the incision. The skin was then reapproximated with 4-0 Monocryl. The tissue was sent to pathology which included the cervix, uterus, tubes and ovaries. The patient was then successfully extubated. She was then taken to the recovery room in stable condition. All sponge laps and needle counts were correct x2.
[2022-01-14] MEDS ORDERED: ACETAMINOPHEN 325 MG TAB PO PRN (16:35)
[2022-01-14] MEDS ORDERED: D5W/LACTATED RINGERS 1,000 ML IV ONE (16:41)
[2022-01-14] MEDS ORDERED: D5W/LACTATED RINGERS 1,000 ML IV SCH (17:00)
[2022-01-14] MEDS ORDERED: ONDANSETRON 4 MG/2 ML INJ IV PRN (17:00)
[2022-01-14] MEDS: oxyCODONE /ACETAMINOPHEN 5-325MG TAB PO PRN (21:05)
[2022-01-15] MEDS: oxyCODONE /ACETAMINOPHEN 5-325MG TAB PO PRN ×2 (02:54→08:56)
[2022-01-15 06:17] LABS: Hematocrit 36.8 % (30.3-42.9); Hemoglobin 12.2 gm/dl (10.1-14.3)
--- NOTE | 2022-01-15 07:58 | Progress Note ---
Assessment and Plan - Patient Problems (1) Uterine fibroid Current Visit: Yes Status: Acute Plan to address problem: Administer antihypertensive medicine Recheck blood pressures Discharge home today Subjective - Subjective Date of service: 01/15/22 Principal diagnosis: Uterine fibroids Interval history: The patient reports feeling well today. Her blood pressures are elevated however patient has not received her antihypertensive meds today. She has voided and her pain has been well controlled. Patient reports: appetite normal, voiding normally, pain well controlled Objective - Vital Signs Latest vital signs: Vital Signs Temp Pulse Resp BP BP Pulse Ox 01/15/22 07:49 98.3 F 98 H 20 155/90 100 01/15/22 06:32 97.9 F 98 H 18 154/84 96 01/15/22 00:34 98.3 F 87 18 141/85 96 01/14/22 21:05 98 01/14/22 20:37 97.6 F 78 16 141/83 97 01/14/22 17:38 97 01/14/22 17:11 97.6 F 69 16 117/67 97 01/14/22 17:10 97.6 F 69 16 117/67 97 01/14/22 16:45 97.4 F L 68 14 119/74 92 01/14/22 16:30 67 20 101/57 91 01/14/22 16:15 67 21 108/57 100 01/14/22 16:05 66 17 101/57 100 01/14/22 15:45 65 16 105/61 100 01/14/22 15:30 63 18 97/51 100 01/14/22 15:25 64 17 96/53 100 01/14/22 15:20 66 19 99/55 100 01/14/22 15:15 68 17 101/54 100 01/14/22 15:12 97.9 F 67 20 97/56 100 01/14/22 13:14 14 01/14/22 12:51 73 14 165/93 100 01/14/22 12:46 75 13 159/92 99 01/14/22 12:42 83 18 169/93 100 01/14/22 12:30 18 01/14/22 11:49 20 01/14/22 11:48 20 01/14/22 11:40 98.0 F 91 H 20 174/100 96 01/14/22 11:08 98.0 F 91 H 18 174/100 96 Intake and Output 01/14/22 01/15/22 01/15/22 22:59 06:59 14:59 Intake Total 1620 380 Output Total 300 300 Balance 1320 80 Intake: IV 1500 Intake, Free Water 120 380 Output: Urine 300 300 Void 300 300 Other: Total, Output Amount 300 300 Voiding Method Toilet # Voids Void 1
[2022-01-15] MEDS: METOPROLOL SUCCINATE XL 50 MG TAB PO SCH ×2 (08:56→10:18)
[2022-01-15] MEDS: amLODIPine 10 MG TAB PO SCH ×2 (08:57→10:18)
[2022-01-15] MEDS ORDERED: IBUPROFEN 800 MG TAB PO PRN (09:00)
--- NOTE | 2022-01-15 11:11 | Vascular Lab Report ---
DUPLEX DOPPLER LOWER EXTREMITY VEINS, BILATERAL INDICATION / CLINICAL INFORMATION: knot and soreness to RLE. TECHNIQUE: Duplex doppler imaging was performed through the veins of both lower extremities using venous babar nathaniel and other maneuvers. COMPARISON: None available. FINDINGS: RIGHT COMMON FEMORAL VEIN: Negative. RIGHT FEMORAL VEIN: Negative. RIGHT POPLITEAL VEIN: Negative. RIGHT CALF VEINS: Negative. LEFT COMMON FEMORAL VEIN: Negative. LEFT FEMORAL VEIN: Negative. LEFT POPLITEAL VEIN: Negative. LEFT CALF VEINS: Negative. ADDITIONAL FINDINGS: None. IMPRESSION: 1. No sonographic evidence for DVT in either lower extremity. Signer Name: Rickie Lafleur MD Signed: 01/15/2022 11:07 AM Workstation Name: [id number]
[2022-01-15 12:56] VITALS: BP 147/87
--- NOTE | 2022-01-15 14:11 | Post Anesthesia Evaluation ---
- Post Anesthesia Evaluation Patient Participated: Yes Airway Patent: Yes Stable Respiratory Function: Yes Nausea/Vomiting: No Temp > 96.8F: Yes Pain Manageable: Yes Adequeate Hydration: Yes Anesthesia Complications: No Block Receding Appropriately: Yes Patient on Ventilator: No Other Comments: patient is being discharged home by her provider in good condition
== END 2022-01-15 13:50 | disposition home or self-care (01) ==
LOC: OR 11:04 → OB 16:35
PROVIDERS: ADMIT Obstetrics & Gynecology; ATTEND Obstetrics & Gynecology
DX: D25.9 Leiomyoma of uterus, unspecified (principal); Z20.822 Contact with and (suspected) exposure to COVID-19; I10 Essential (primary) hypertension; Z79.899 Other long term (current) drug therapy; Z98.890 Other specified postprocedural states
CPT/HCPCS: 36415; 58554; 64488; 80048; 84703; 85014; 85018; 85025; 86850; 86900; 86901; 88307; 93970; G0378; J0690; J1100; J1170; J1815; J2250; J2370; J2704; J2710; J3010; J3490; J7120; S2900; U0003; 64450; J7060; J2405; J7121

== ENCOUNTER 2022-01-16 20:04 | Emergency (ER) | payer OTHER ==
[2022-01-16] MEDS ORDERED: MORPHINE 4 MG/1 ML INJ IV ONE (22:13)
[2022-01-16] MEDS ORDERED: ONDANSETRON 4 MG/2 ML INJ IV ONE (22:13)
--- NOTE | 2022-01-16 22:38 | XRay Report ---
CHEST 1 VIEW INDICATION / CLINICAL INFORMATION: chills cough. COMPARISON: Chest x-ray 05/16/2021 FINDINGS: SUPPORT DEVICES: None. HEART / MEDIASTINUM: [id number] cardiomegaly stable. Pulmonary vasculature within normal limits . LUNGS / PLEURA: 8 mm pulmonary nodule right upper lung versus prominent anterior right first rib. John cified left perihilar granuloma. Lungs otherwise clear for technique. No pneumothorax. ADDITIONAL FINDINGS: No significant additional findings. IMPRESSION: 1. No active cardiopulmonary disease. 2. Suggested pulmonary nodule right upper lobe. CT recommended for further characterization. Signer Name: Cain Monae II, MD Signed: 01/16/2022 10:34 PM Workstation Name: [id number]
[2022-01-16 22:54] LABS: Bacteria,Urine 1+ /HPF (Negative); Bilirubin,Urine NEG (Negative); Blood,Urine MOD (Negative); Color,Urine Straw (Yellow); Mucus,Urine FEW /HPF; Protein,Urine <15 mg/dL mg/dL (Negative); Urobilinogen,Urine < 2.0 mg/dL (<2.0)
--- NOTE | 2022-01-16 23:02 | Emergency Department Report ---
ED Fever HPI - General Chief Complaint: Pain General Stated Complaint: ABDOMINAL PAIN/COLD/CHILLS PUI?: No Time Seen by Provider: 01/16/22 22:07 Source: patient Exam Limitations: no limitations - History of Present Illness Initial Comments: Chief complaint: "I hurt all over." HPI: This is a 46-year-old female with history of hypertension who is 2 days status post robotic hysterectomy. She was discharged yesterday. She has chills and subjective fever. She has body aches sore throat productive cough and dysuria. She has had persistent abdominal pain since the surgery. She was discharged with Percocet. She denies vomiting. She denies vaginal discharge. She denies diarrhea. Her last BM occurred this morning. She has been compliant with her blood pressure medications including amlodipine hydrochlorothiazide and metoprolol. She underwent robotic hysterectomy for excessive vaginal bleeding and uterine fibroids. She contacted her surgeon Dr. Saint Vallecillo who recommended ER evaluation. Timing/Duration: this afternoon Fever Severity/Quality: subjective Associated Symptoms: other (Chills subjective fever sore throat productive cough dysuria persistent abdominal pain) ED Review of Systems ROS: Stated complaint: ABDOMINAL PAIN/COLD/CHILLS Other details as noted in HPI Comment: All other systems reviewed and negative Constitutional: chills, fever ENT: throat pain Respiratory: cough. denies: shortness of breath Cardiovascular: denies: chest pain Gastrointestinal: abdominal pain ED Past Medical Hx - Past Medical History Previous Medical History?: Yes Hx Hypertension: Yes Hx Diabetes: No Hx GERD: No Hx Sickle Cell Disease: No Hx Asthma: Yes ( CHILD) Hx COPD: No Hx HIV: No - Surgical History Past Surgical History?: Yes Additional Surgical History: Carpal Tunnel, Hysterectomy - Family History Family history: hypertension - Social History Smoking Status: Never Smoker Substance Use Type: None - Medications Home Medications: Home Medications Medication Instructions Recorded Confirmed Last Taken Type amLODIPine 10 mg PO QDAY #30 tablet 05/17/21 01/14/22 01/14/22 08:30 Rx Metoprolol Xl [Metoprolol 50 mg PO QDAY 01/07/22 01/14/22 01/14/22 08:30 History SUCCINATE ER TAB] Vitamin D (Nf) 1 cap PO 1XW 01/07/22 01/14/22 01/09/22 09:00 History hydroCHLOROthiazide [HCTZ] 25 mg PO QDAY 01/07/22 01/14/22 01/13/22 09:00 History ED Physical Exam - General Limitations: No Limitations General appearance: alert, in no apparent distress - Head Head exam: Present: atraumatic, normocephalic - Eye Eye exam: Present: normal appearance - ENT ENT exam: Present: mucous membranes moist - Neck Neck exam: Present: normal inspection, full ROM - Respiratory Respiratory exam: Present: normal lung sounds bilaterally. Absent: respiratory distress, wheezes, rales, rhonchi - Cardiovascular Cardiovascular Exam: Present: regular rate, normal rhythm, normal heart sounds. Absent: systolic murmur, diastolic murmur, rubs, gallop - GI/Abdominal GI/Abdominal exam: Present: soft, normal bowel sounds, other (several small surgical wounds,tissue adhesive intact, wounds clear dry intact). Absent: distended, tenderness, guarding, rebound - Extremities Exam Extremities exam: Present: normal inspection - Neurological Exam Neurological exam: Present: alert, oriented X3 - Psychiatric Psychiatric exam: Present: normal affect, normal mood - Skin Skin exam: Present: warm, dry, intact, normal color. Absent: rash ED Course Vital Signs 01/16/22 01/16/22 01/16/22 21:08 21:12 22:14 Temperature 98.5 F Pulse Rate 92 H 93 H Respiratory 16 16 Rate Blood Pressure Blood Pressure 216/137 [Left] O2 Sat by Pulse 98 97 97 Oximetry 01/16/22 01/16/22 01/16/22 22:15 22:16 22:30 Temperature Pulse Rate 93 H 82 80 Respiratory 21 20 18 Rate Blood Pressure 205/112 199/105 Blood Pressure 199/105 [Left] O2 Sat by Pulse 99 99 99 Oximetry 01/16/22 01/16/22 01/16/22 22:45 23:01 23:06 Temperature Pulse Rate 81 81 136 H Respiratory 18 13 18 Rate Blood Pressure 199/105 204/121 Blood Pressure 199/105 [Left] O2 Sat by Pulse 97 97 97 Oximetry ED Medical Decision Making - Lab Data Result diagrams: 01/16/22 23:00 01/16/22 23:00 - Medical Decision Making This is a 46-year-old who is 2 days. Robotic hysterectomy. She presents with subjective fever, chills, sore throat productive cough and dysuria. No evidence of UTI or pneumonia. I do not suspect postoperative complication. Differential diagnosis includes viral syndrome such as influenza or COVID-19. Recommended supportive care rest and hydration. CBC within normal limits without leukocytosis or left shift. Chemistry within normal limits. Urinalysis contaminated with epithelial cells no pyuria no nitrates. I have informed patient that she has pulmonary nodule on chest radiograph. She understands follow-up with her PCP for repeat chest radiograph for outpatient CT. I also provided follow-up with pulmonology specialist for lung nodule evaluation. Mother is at the bedside. 2 family members were diagnosed with lung cancer. Mother and patient appreciated the referral to Dr. Hill. For postoperative pain patient received morphine IV as well as IV Zofran. I recommended supplementing her pain regimen with ibuprofen in addition to Percocet. Most recent heart rate 88 bpm. She did not have any persistent tachycardia in the emergency department. Hypertensive urgency due to pain without evidence of endorgan damage. Critical care attestation.: If time is entered above; I have spent that time in minutes in the direct care of this critically ill patient, excluding procedure time. ED Disposition Clinical Impression: Viral syndrome, Postoperative pain, Hypertensive urgency, Incidental lung nodule Disposition: HOME / SELF CARE / HOMELESS Is pt being admited?: No Does the pt Need Aspirin: No Condition: Stable Instructions: Pulmonary Nodule, [id number] Additional Instructions: Please call Dr. Hill for evaluation of lung nodule. Please return to the emergency department for worsening symptoms specifically high fever, severe pain, chest pain or shortness of breath Referrals: CARLIE HILL MD [Staff Physician] - 3-5 Days
[2022-01-16 23:14] LABS: Basophils # (Auto) 0.1 K/mm3 (0.0-0.1); Basophils % (Auto) 0.9 % (0.0-1.8); Eosinophils # (Auto) 0.1 K/mm3 (0.0-0.4); Eosinophils % (Auto) 0.7 % (0.0-4.3); Hematocrit 36.3 % (30.3-42.9); Hemoglobin 11.7 gm/dl (10.1-14.3); Lymphocytes % (Auto) 41.8 % (13.4-35.0); Mean Corpuscular HGB Conc 32 % (30-34); Mean Corpuscular Volume 80 fl (79-97); Platelet Count 377 K/mm3 (140-440); Red Blood Count 4.55 M/mm3 (3.65-5.03); Red Cell Distribution Width 17.2 % (13.2-15.2)
[2022-01-16 23:32] LABS: Blood Urea Nitrogen 8 mg/dL (7-17); Hemolysis Index 2
[2022-01-16 23:33] LABS: BUN/Creatinine Ratio 13
[2022-01-17 00:19] VITALS: BP 180/106
== END 2022-01-17 00:53 | disposition home or self-care (01) ==
LOC: ED 20:04
DX: B34.9 Viral infection, unspecified (principal); G89.18 Other acute postprocedural pain; R91.1 Solitary pulmonary nodule; I16.0 Hypertensive urgency; Z79.899 Other long term (current) drug therapy
CPT/HCPCS: 36415; 71045; 80048; 81001; 85025; 96374; 96375; 99284; J2270; J2405